=== PATIENT | female | born 1970 | race Two or more races ===

== ENCOUNTER 2025-01-04 09:40 | Outpatient (AMB) | payer OTHER, SELFPAY ==
--- NOTE | 2025-01-04 09:47 | A.OFFVIS_ITS ---
VS Expanded 01/04/25 09:49 BP 141/67 H Blood Pressure Location Lt brachial Blood Pressure Position Sitting Pulse 55 Pulse Oximetry 98 Height 5 ft 3 in Weight 179 lb 3.2 oz BMI 31.7 Body Fat % 39.4 Body Fat Mass 70.6 Fat Free Mass 108.4 Visceral Fat Rating 10.0 Body Water % 43.0 Body Water Mass 77.0 Muscle Mass/Score 103.0 Basal Metabolic Rate/Score 1,489 Intake Visit Reasons: OV PO LSG (GLP-1 medication) Mirror Polisher Required: No Allergies No Known Allergies [No Known Allergies*] Allergy (Unverified 01/04/25 09:48) Medication List - Last Reconciled 01/04/25 by AMANDA Burgess ascorbate calcium (vitamin C) 1 g PO Q6H ergocalciferol (vitamin D2) (Vitamin D2) 1,250 mcg PO QWEEK famotidine 20 mg PO BEDTIME magnesium citrate 500 mg PO ONCE omeprazole 20 mg PO DAILY vitamin E (dl, acetate) 45 mg PO DAILY HPI Comments Details: Patient is a 54-year-old female who returns to the office for follow-up. She is status post sleeve gastrectomy performed on 07/21/2018. She states that her weight initially was 215 lb. Her operative weight was a proximally 190 lb. Her last visit was in a proximally 2019. She reports her lowest weight of 139 lb and the most she weighed since surgery was 180 lb. Weight today is 179.2 lb with a BMI of 31.7. Meal plan: nothing formal Drinking 32 oz water daily, coffee in the morning, no soda or juice, no etoh, no tobacco Exercise plan: walking outside and treadmill at home outside, 3 days per week, 30 min Treadmill, 2-3, 1 hour, 300 calories Any post op complications: none IRVIN: ongoing DM: Never HTN: Never Hyperlipidemia: Never GERD:?0-5 scale ??0 = no symptoms ??1 = symptoms noticeable but not bothersome 2 =symptoms bothersome but not daily ? 3 = symptoms bothersome and daily 4 = symptoms affect daily activities 5 = symptoms are incapacitating, unable to do daily activities ? How bad is the heartburn: 3 ? Heartburn while lying down: 3 ? Heartburn when standing up: 2 ? Heartburn after meals: 3 ? Does heartburn change your diet: 2 ? Does heartburn wake you up from sleep: 0 ? Do you have difficulty swallowin ? Do you have pain with swallowin ? If you take medicine for your reflux, does this affect your daily life: 0 Satisfaction with present condition - satisfied or not satisfied: not satisfied PFSH Surgical History Hx of laparoscopic partial gastrectomy Family History Sister Brain cancer Paternal Aunt Breast cancer Physical Exam Vital Signs: Last Vital Signs Pulse 55 01/04/25 09:49 BP 141/67 H 01/04/25 09:49 Pulse Ox 98 01/04/25 09:49 BMI result Body Mass Index 31.7 Const General: cooperative and no acute distress Orientation/consciousness: patient oriented x3 Resp Effort & Inspection: normal respiratory effort Auscultation: clear to auscultation bilaterally Cardio Rate: regular rate Rhythm: regular rhythm GI Inspection: Yes normal to inspection and Yes incision (well healed) Palpation (GI): Soft to palpation and no masses Neuro General: patient oriented x3 Assessment & Plan Assessment & Plan (1) S/P laparoscopic sleeve gastrectomy: Code(s): Z98.84 - Bariatric surgery status Category: Surgical Plan: Patient has not been seen in the office in at least 5 years. Check postop labs. Start meal plan: 6-8 am celebrate rebuild with 2 scoops in 10 oz of unsweetened coconut milk 11-1 pm another shake 6 pm meal with 7 forks of protein And 7 forks of vegetables8 pm apple or half cup fresh berries Drink 64 oz of water or crystal light or propel daily She will use her treadmill at home, tracking calories with a goal of burning 300 calories per day. She wants to additionally do Pilates. We will have her return to the office in approximately 4 weeks. I gave her my cell phone number to communicate weekly with her weight is and with any questions or concerns. Orders: Orders Lipid Panel Today Z98.84 - Bariatric surgery status IRON PROFILE Today Z98.84 - Bariatric surgery status Comprehensive Met. Panel Today Z98.84 - Bariatric surgery status Vitamin B12 and Folate Today Z98.84 - Bariatric surgery status Zinc Today Z98.84 - Bariatric surgery status Vitamin A Today Z98.84 - Bariatric surgery status TSH reflex Free T4 Today Z98.84 - Bariatric surgery status Ferritin Today Z98.84 - Bariatric surgery status Insulin Today Z98.84 - Bariatric surgery status Hemoglobin A1c Today Z98.84 - Bariatric surgery status Complete Blood Count Auto Diff Today Z98.84 - Bariatric surgery status C Reactive Protein Today Z98.84 - Bariatric surgery status Vitamin B1 Today Z98.84 - Bariatric surgery status Vitamin D 25-OH Total Today Z98.84 - Bariatric surgery status
[2025-01-04 09:49] VITALS: BP 141/67; PULSE 55; O2SAT 98; BMI 31.7
--- OUTSIDE RECORDS SUMMARY | 2025-01-04 10:53 | XMS_ITS | Clinical Summary ---
Author Organization [facility] [address] [place] [address] [place] [address] Phone Care Team Providers Care Director Sales Name Role Phone Guanakito Goode Primary Care Provider [phone] Allergies No known active allergies Medications albuterol 2.5 mg /3 mL (0.083 %) nebulizer solution Inhale 3 mL (2.5 mg total) by mouth. 4 Active albuterol HFA (Ventolin HFA) 90 mcg/actuation inhaler Inhale 2 puffs by mouth. 4 Active famotidine (PEPCID) 20 mg tablet Take 1 tablet (20 mg total) by mouth 2 (two) times a day. 4 Active fluticasone propionate (FLONASE) 50 mcg/actuation nasal spray Administer 2 sprays into each nostril 1 (one) time each day. 4 Active loratadine (CLARITIN) 10 mg tablet Take 1 tablet (10 mg total) by mouth. 3 Active melatonin 3 mg tablet Take 1-2 tablets (3-6 mg total) by mouth. 4 Active montelukast (SINGULAIR) 10 mg tablet Take 1 tablet (10 mg total) by mouth. 4 Active omeprazole (PriLOSEC) [address] capsule Take 2 capsules (40 mg total) by mouth 1 (one) time each day. 3 Active SUMAtriptan (IMITREX) 100 mg tablet TAKE 1 TABLET BY MOUTH NEEDED FOR MIGRAINE HEADACHES, MAY REPEAT DOSE ONCE AFTER 2 HOURS 4 Active magnesium oxide (MAG-OX) 400 mg magnesium tablet Take 2 tablets (800 mg total) by mouth 1 (one) time each day. 4 Active multivitamin with minerals (Multiple Vitamin-Minerals) tablet Take by mouth. Activ e azelastine (ASTELIN) 137 mcg (0.1 %) nasal spray 2 Sprays by Each Nare route 2 times daily. Use in each nostril as directed Active beclomethasone dipropionate (QVAR REDIHALER) 80 mcg/actuation HFA aerosol breath activated inhaler Inhale 1 Puff into the lungs 2 Times Daily Active topiramate (TOPAMAX) 25 mg tablet Take 1 tablet (25 mg total) by mouth 1 (one) time each day in the evening. For 180 days Active UNABLE TO FIND Med Name: CPAP Historical (HISTORICAL CPAP) Inhale into the lungs. Life supply-pressur e 4-8 - Inhalation Active Active Problems Problem Noted Date Diagnosed Date Mild persistent asthma without complication 05/2024 Lateral epicondylitis of right elbow 04/09/2024 Vitamin D deficiency 06/23/2023 Allergic rhinitis due to pollen 01/16/2018 Obstructive sleep apnea 11/13/2016 Overview (08/16/2024): [facility] Polysomnogram: Date 11/05/2016; Wt 210# SE 88%; SM 83%; REM 23%; RDI 31 (AHI 25), worse in REM (RDI 76 - AHI 74), Central apneas 1; Obstructive apneas 14; Mixed apneas 0; hypopneas 170; RERAs 46; average oxygen saturation 95% (lowest 69% - with saturations <88% for 5% or more of study); PLMs 31. [facility] Polysomnogram treatment study. Date 02/24/2017 . SE 92 % SM 92 %; spent 35 % of the study in REM. At the optimal pressure of 5; RDI 1 (AHI 0.8), Central apneas 0; Obstructive apneas 4; Mixed apneas 0; hypopneas 2; RERAs 1; and, average oxygen saturation was 92%. For the entire study, PLMs ~35. Last Assessment & Plan: Life Supplies. CPAP 4-8cm PLMD (periodic limb movement disorder) 7 GERD (gastroesophageal reflux disease) 6 Migraine 10/01/2013 Overweight (BMI 25.0-29.9) 04/29/2013 Overview (08/16/2024): S/p sleeve gastrectomy Knee pain 04/22/2012 Heartburn 04/22/2012 Calculus of kidney 01/08/2012 Overview (08/16/2024): I got a CT report from [facility] documenting 6mm stone and left sided hydronephrosis. Asthma 08/22/2011 Overview (08/16/2024): Mild and she only uses the albuterol about once per month Immunizations Name Administration Dates Next Due Influenza Quadravalent, MDCK , 0.5ml, preservative free (Flucelvax) 6mo and older 12/23/2022 Influenza Quadravalent, MDCK , 0.5ml, with preservative (Flucelvax) 6mo and older 08/03/2017 Influenza trivalent, 0.5mL, preservative free (Fluarix; FluLaval; Fluzone) ages 6mo and older (Afluria) 3 years and older 07/21/2023 Influenza trivalent, with pr eservative (Fluzone; Afluria) 6mo and older 09/29/2016,10/01/2013 Moderna (age 6mo & older) Bi valent, COVID-19, 0.5 mL or 0.25 mL dosage 01/03/2023 [email or web address] SARS-CoV-2 COVID-19, mRNA, LNP-S, preservative free 12/16/2021,04/12/2021,03/22/2021 Pneumococcal polysaccharide 23 valent (Pneumovax 23) 2yo and older 03/01/2019 Td Tetanus diptheria (Tdvax) 7yo and older 12/23 Tdap Tetanus diptheria acell ular pertussis (Boostrix; Adacel) 7yo and older 04/22/2012 Zoster recombinant (Shingrix ) 19yo and older 03/03/2023,01/03/2023 Surgical History Surgery Date Site/Laterality Comments ESOPHAGOGASTRODUODENOSCOPY 04/10/2012 PROCEDURE: IL ESOPHAGOGASTRODUODENOSCOPY TRANSORAL DIAGNOSTIC; COMMENT: normal MULTIPLE TOOTH EXTRACTIONS PROCEDURE: HISTORICAL DENTAL EXTRACTION OTHER SURGICAL HISTORY 07/21/2018 PROCEDURE: IL LAPS GSTR RSTCV PX W/BYP RASHI-EN-Y LIMB <150 CM; COMMENT: SLEEVE COLONOSCOPY 2020 PROCEDURE: HISTORICAL COLONOSCOPY; COMMENT: rpt 10 years Medical History Medical History Date Comments Asthma 08/22/2011 DX:Asthma Obesity (BMI 30-39.9) 04/29/2013 DX:Obesity (BMI 30-39.9) Family History Medical History Relation Name Comments Other: GSW, wheelchair bound Brother Diabetes Father HTN, HLD Hypertension Maternal Grandfather CVA Diabetes Maternal Grandmother retinop athy, ESRD Hyperlipidemia Mother DM Breast cancer Other p aunt Heart attack Paternal Grandfather Heart attack Paternal Grandmother Other: glioma Sister 1 No Known Problems Sister 2 Colon cancer Neg Hx Ovarian cancer Neg Hx Relation Name Status Comments Brother Alive Father Maternal Grandfather Maternal Grandmother Mother Alive Other p aunt Paternal Grandfather Paternal Grandmother Sister 1 Sister 2 Alive Social History Tobacco Use Types Packs/Day Years Used Date Smoking Tobacco: Never Smokeless Tobacco: Never Alcohol Use Standard Drinks/Week Comments Yes 0 (1 standard drink = 0.6 oz pur e alcohol) Comments Unknown Sex and Gender Information Value Date Recorded Sex Assigned at Not on file Legal Sex Female 11:37 PM EST Gender Identity Not on file Sexual Orientation Not on file Obstetrics History Last Filed Vital Signs Vital Sign Reading Time Taken Comments Blood Pressure 124/80 07/16/2024 10:46 AM EDT Pulse 49 07/16/2024 10:46 AM EDT Temperature - - Respiratory Rate - - Oxygen Saturation - - Inhaled Oxygen Concentration - - Weight 83.1 kg (183 lb 3.2 oz) 07/16/2024 10:46 AM EDT Height 160 cm (5' 3 ) 07/16/2024 10:46 AM EDT Body Mass Index 32.45 07/16/2024 10:46 AM EDT Plan of Treatment Upcoming Encounters Date Type Department Care Team (Late st Contact Info) Description 01/13/2025 11:30 AM EST Office Visit Pulmonolgy - [place] [address] [place] [id number] Amber Austin, SURAJ [address] [place] [address] 04/02/2025 11:30 AM EDT Appointment Radiology Department - [address] [phone] Health Maintenance Due Date Last Done Comments Hepatitis B Vaccines (2 of 3 - 19+ 3-dose series) 09/06/2023 08/09/2023 Influenza Vaccine (#1) 2024 , 12/23/2022, 08/03/2017, Additional history exists COVID-19 Vaccine ( season) 2024 07/24/2024, 01/03/2023, 12/16/2021, Additional history exists Depression Screening 09/23/2024 12/29/2023, 09/23/20 Social Influencers of Health Screening 12/22/2024 12/22/2023 Breast Cancer Screening 03/13/2026 03/13/20, 03/13/2024, 02/15/2023, Additional history exists Cervical Cancer Screening: HPV 03/07/2028 03/07/2023 Cholesterol Screening (Lipid Panel) 12/29/2028 12/29/2023, 12/29/2023 Colorectal Cancer Screening: Colonoscopy 02/19/2031 02/19/2021, 02/19/2021 DTaP,Tdap,and Td Vaccines (3 - Td or Tdap) 12/23/2032 12/23/2022, 04/22/2012 HIV Screening Completed 11/24/2018 Hepatitis C Screening Completed 01/02/2023 Zoster Vaccines Completed 03/03/2023, 01/03/2023 Pneumococcal Vaccine: 50+ Years Completed 07/24/2024, 03/01/2019 Pneumococcal Vaccine: Pediatrics (0 to 5 Years) and At-Risk Patients (6 to 64 Years) Completed 07/24/2024, 03/01/2019 HIB Vaccines Aged Out No longer eligi ble based on patient's age to complete this topic HPV Vaccines Aged Out No longer eligi ble based on patient's age to complete this topic Hepatitis A Vaccines Aged Out No long er eligible based on patient's age to complete this topic IPV Vaccines Aged Out No longer eligi ble based on patient's age to complete this topic MMR Vaccines Aged Out No longer eligi ble based on patient's age to complete this topic Meningococcal ACWY Vaccine Aged Out N o longer eligible based on patient's age to complete this topic Meningococcal B Vacine Aged Out No lo nger eligible based on patient's age to complete this topic RSV Immunization Patients Under 20 months Aged Out No longer eligible based on patient's age to complete this topic Varicella Vaccines Aged Out No longer eligible based on patient's age to complete this topic Procedures Procedure Name Priority Date/Time Associated Diagnosis Comments SCREENING MAMMOGRAPHY BI 2-VIEW BREAST INC CAD Routine 03/13/2024 11:24 AM EDT Encounter for screening mammogram for malignant neoplasm of breast LIPID PANEL Routine 12/29/2023 DEPRESSION SCREENING Routine 09/23/2023 HPV Routine 03/07/2023 HEPATITIS C SCREENING Routine 01/02/2023 COLONOSCOPY Routine 02/19/2021 HIV SCREENING Routine 11/24/2018 from Last 3 Months or Most Recently Relevant to Health Maintenance Results * SCREENING MAMMOGRAPHY BI 2-VIEW BREAST INC CAD (03/13/2024 11:24 AM EDT) Anatomical Region Laterality Modality Radiographic Jenny ging 02/15/2023 11:3 7 AM EDT Narrative 03/15/2024 11:55 AM EDT This is a summary report. The complete report is available in the patient's medical record. If you cannot access the medical record, please contact the sending organization for a detailed fax or copy. Full field digital screening 2D C views and tomosynthesis mammography, reviewed with CAD and compared to previous. The breasts are composed of fatty and fibroglandular tissue. ??No suspicious mass, architectural distortion or suspicious calcifications are identified. IMPRESSION: : No mammographic evidence of malignancy. BIRADS 1-Negative; N. 5 year breast cancer risk assessment 0.9 % Lifetime breast cancer risk assessment 6.5 % Breast cancer risk category Low (<15%) Procedure Note Nataliya Abarca MD - 06/28/2024 This is a summary report. The complete report is available in thepatient's medical record. If you cannot access the medical record, pleasecontact the sending organization for a detailed fax or copy. Full field digital screening 2D C views and tomosynthesis mammography,reviewed with CAD and compared to previous. The breasts are composed offatty and fibroglandular tissue. No suspicious mass, architecturaldistortion or suspicious calcifications are identified. IMPRESSION: : No mammographic evidence of malignancy. BIRADS 1-Negative; N. 5 year breast cancer risk assessment 0.9 % Lifetime breast cancer risk assessment 6.5 % Breast cancer risk category Low (<15%) Result [facility] Guanakito PATEL IMG XR PROCEDURES Final R esult * (ABNORMAL) Lipid panel (12/29/2023) [facility] LDL/HDL Ratio 3 0 - 4 Triglycerides 105 0 - 150 mg/dL Cholesterol 200 0 - 200 mg/dL HDL 72 >=40 mg/dL LDL Cholesterol 107(A) 0 - 100 mg/dL Blood Venous blood specimen / Unknown Result [facility] BLOOD ORDERABLES Paloma l Result * Depression Screening (09/23/2023) [facility] Depression Screening abstracted Result [facility] HEALTH MAINTENANCE Final Result * Cervical Cancer Screening: HPV (03/07/2023) [facility] Cervical Cancer Screening: HPV abstracted; negative Result [facility] HEALTH MAINTENANCE Final Result * Hepatitis C Screening (01/02/2023) [facility] Hepatitis C Screening abstracted Historical Provider HEALTH MAINTENANCE Final Result * Colonoscopy (02/19/2021) Colonoscopy abstracted Anatomical Region Laterality Modality Other Historical Provider HEALTH MAINTENANCE Final Result * HIV Screening (11/24/2018) HIV Screening abstracted Historical Provider HEALTH MAINTENANCE Final Result from Last 3 Months or Most Recently Relevant to Health Maintenance Insurance PLAN Care Teams Director Sales Relationship Specialty Start Date End Date Guanakito Goode PA [address] [place] [id number] PCP - General Internal Medicine 12/29/24
--- OUTSIDE RECORDS SUMMARY | 2025-01-04 10:54 | XMS_ITS | Clinical Summary ---
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 [employer]posites Name Role Phone Unavailable Primary Care Provider Unavailabl e Source Comments PLEASE NOTE, if this patient is a minor, it may be UNLAWFUL to discuss sensitive information that is contained in these records (such as FAMILY PLANNING, MENTAL HEALTH or SUBSTANCE ABUSE) with the minor patient's parent or other person without the patient's specific authorization.[facility] Immunizations Name Administration Dates Next Due PFIZER COVID VACCINE, PURPLE CAP, 12+ 04/12/2021 ,03/22/2021 Social History Tobacco Use Types Packs/Day Years Used Date Smoking Tobacco: Never Smokeless Tobacco: Never Alcohol Use Standard Drinks/Week Comments Never 0 (1 standard drink = 0.6 oz pur e alcohol) Social Connections Answer Date Recorded Social Connections and Isolation 0 05/10/2024 Financial Resource Strain Answer Date R ecorded Financial Resource Strain 0 2023 Stress Answer Date Recorded Stress 0 05/10/2024 Physical Activity Answer Date Recorded Physical Activity 0 05/10/2024 Food Insecurity Answer Date Recorded Food 0 05/10/2024 Transportation Needs Answer Date Record ed Transportation 0 05/10/2024 Housing Stability Answer Date Recorded Housing 0 05/10/2024 Safety and Environment Answer Date Lonnie rded Safety 0 05/10/2024 Utilities Answer Date Recorded Utilities 0 05/10/2024 Employment Answer Date Recorded Employment 0 05/10/2024 Comments Unknown Sex and Gender Information Value Date Recorded Sex Assigned at Female 07/28/2020 8:11 AM PDT Legal Sex Female 11:36 AM PDT Gender Identity Female 07/28/2020 8:11 AM PDT Sexual Orientation Straight 07/28/2020 8: 11 AM PDT Last Filed Vital Signs Vital Sign Reading Time Taken Comments Blood Pressure 146/69 07/28/2020 11:09 AM EDT Pulse 55 07/28/2020 11:09 AM EDT Temperature 36.7 ??C (98.1 ??F) 07/28/2020 11:09 AM E DT Respiratory Rate - - Oxygen Saturation - - Inhaled Oxygen Concentration - - Weight 73 kg (161 lb) 07/28/2020 11:09 AM EDT Height - - Body Mass Index - - Plan of Treatment Health Maintenance Due Date Last Done Comments Diabetes Screening 1969 HPV Screening 1969 Hepatitis C Screening 1969 Lipid Screening 1969 Pap + HPV 1969 Tobacco Screening 1969 HIV Screening 1984 Imm-Hepatitis B (1 of 3 - 19 + 3-dose series) 1988 Cervical Cancer Screening [address] Colonography 2014 Colonoscopy 2014 Colorectal Cancer Screening 2014 FIT/gFOBT 2014 Fecal DNA 2014 Flexible Sigmoidoscopy 2014 Imm-Zoster, Recombinant (1 of 2) 2019 Hypertension Screening (#1) 07/28/2021 Imm-DTaP/Tdap/Td (2 - Td or Tdap) 04/22/2022 012 Breast Cancer Screening (Mammogram) 01/06/202301/06 [id number] ( season) 2024 021, 03/22/2021 Imm-Influenza (#1) 2024 09/29/2016, 10/01/2013 Alcohol and Drug Screen 11/10/2024 Depression Annual Screen 11/10/2024 Cervical Ablation/Cold-Knife Conization Discontinued Cervical Cryotherapy Discontinued Colposcopy Discontinued Endometrial Biopsy Discontinued Excision/Leep Discontinued HPV Genotyping Discontinued Vaginal Pap Discontinued Vulvoscopy Discontinued Insurance [employer]
== END 2025-01-04 10:30 | disposition home or self-care (01) ==
PROVIDERS: PCP Internal Medicine Endocrinology, Diabetes & Metabolism; Visit Provider Physician Assistant Surgical
DX: E66.811 Obesity, class 1 (principal); Z68.31 Body mass index [BMI] 31.0-31.9, adult; Z90.3 Acquired absence of stomach [part of]; Z98.84 Bariatric surgery status
CPT/HCPCS: 99214; G2211

== ENCOUNTER → 2025-01-04 09:40 | Outpatient (BNVA) | payer OTHER, SELFPAY | PROVIDERS: PCP Internal Medicine Endocrinology, Diabetes & Metabolism; Visit Provider Physician Assistant Surgical | DX: Z98.84 Bariatric surgery status (principal) | CPT/HCPCS: 99212 ==

== ENCOUNTER 2025-01-14 09:13 | Outpatient (REF) | payer OTHER, SELFPAY ==
[2025-01-14 09:43] LABS: MANUAL DIFF FLAG NO
--- OUTSIDE RECORDS SUMMARY | 2025-01-14 09:55 | XMS_ITS | Clinical Summary ---
Author Organization [facility] Address [address] [place] [address] Care Team Providers Care Automatic Door Mechanic Name Role Phone Unavailable Primary Care Provider [...] 04/22/2022 012 Breast Cancer Screening (Mammogram) 01/06/202301/06 [id number] ( season) 2024 021, 03/22/2021 Imm-Influenza (#1) 2024 09/29/2016, 10/01/2013 Alcohol and Drug Screen 11/10/2024 Depression Annual Screen 11/10/2024 Cervical Ablation/Cold-Knife Conization Discontinued Cervical Cryotherapy Discontinued Colposcopy Discontinued Endometrial Biopsy Discontinued Excision/Leep Discontinued HPV Genotyping Discontinued Vaginal Pap Discontinued Vulvoscopy Discontinued Insurance [employer]
--- OUTSIDE RECORDS SUMMARY | 2025-01-14 09:55 | XMS_ITS | Clinical Summary ---
Author Organization [facility] [address] [place] [address] [place] [address] Phone Care Team Providers Care Candy Spreader Helper Name Role Phone Guanakito Goode Primary Care Provider [phone] [phone] Allergies No known active allergies Medications loratadine (CLARITIN) 10 mg tablet Take 1 tablet (10 mg total) by mouth. 023 Active melatonin 3 mg tablet Take 1-2 tablets (3-6 mg total) by mouth. 024 Active omeprazole (PriLOSEC) [address] capsule Take 2 capsules (40 mg total) by mouth 1 (one) time each day. 023 Active SUMAtriptan (IMITREX) 100 mg tablet TAKE 1 TABLET BY MOUTH NEEDED FOR MIGRAINE HEADACHES, MAY REPEAT DOSE ONCE AFTER 2 HOURS 024 Active magnesium oxide (MAG-OX) 400 mg magnesium tablet Take 2 tablets (800 mg total) by mouth 1 (one) time each day. 024 Active multivitamin with minerals (Multiple Vitamin-Mineral s) tablet Take by mouth. Activ e UNABLE TO FIND Med Name: CPAP Historical (HISTORICAL CPAP) Inhale into the lungs. Life supply-pressure 4-8 - Inhalation Active famotidine (PEPCID) 20 mg tabletIndicatio ns:Allergic rhinitis due to pollen,Gastro-e sophageal reflux disease without esophagitis TAKE 1 TABLET BY MOUTH TWICE A DAY 180 tablet 3 025 Active montelukast (SINGULAIR) 10 mg tabletIndicatio ns:Mild persistent asthma without complication Take 1 tablet (10 mg total) by mouth at bedtime. 90 each 3 025 2025 Active azelastine (ASTELIN) 137 mcg (0.1 %) nasal sprayIndication s:Allergic rhinitis due to pollen, unspecified seasonality Administer 2 sprays into each nostril 2 (two) times a day. 2 Sprays by Each Nare route 2 times daily. Use in each nostril as directed 90 mL 3 025 2025 Active albuterol HFA (Ventolin HFA) 90 mcg/actuation inhalerIndicati ons:Mild persistent asthma without complication Inhale 2 puffs by mouth every 4 (four) hours if needed for wheezing. 54 g 1 Active albuterol 2.5 mg /3 mL (0.083 %) nebulizer solutionIndicat ions:Mild persistent asthma without complication Take 3 mL (2.5 mg total) by nebulization every 4 (four) hours if needed for wheezing. 75 mL 3 Active vitamin E 670 mg (1,000 unit) capsule Take 1 capsule (1,000 Units total) by mouth 1 (one) time each day. Active omega 8-ozo-dph-fish oil 1,000 mg (250 mg-750 mg)/5 mL liquid Take 1,000 mg by mouth. Active mecobalamin, vitamin B12, (B12 Active) 1,000 mcg tablet,chewable Chew 1,000 mcg 1 (one) time each day. Active ashwagandha extract 500 mg capsule Take 500 mg by mouth 1 (one) time each day. Active ascorbic acid (Vitamin C) 1,000 mg tablet Take 1 tablet (1,000 mg total) by mouth 1 (one) time each day. Active vitamin D3-vitamin K2 (K2-D3 Max) 125 mcg (5,000 unit)-180 mcg capsule Take 5,000 Units by mouth 1 (one) time each day. Active fluticasone HFA (FLOVENT HFA) 110 mcg/actuation inhalerIndicati ons:Mild persistent asthma without complication Inhale 1 puff by mouth 2 (two) times a day. 36 each 2 Active fluticasone propionate (FLONASE) 50 mcg/actuation nasal sprayIndication s:Allergic rhinitis due to pollen, unspecified seasonality Administer 2 sprays into each nostril 1 (one) time each day. 48 g 3 025 2025 Active albuterol 2.5 mg /3 mL (0.083 %) nebulizer solution Inhale 3 mL (2.5 mg total) by mouth. 2024 Discontinued(R eorder) albuterol HFA (Ventolin HFA) 90 mcg/actuation inhaler Inhale 2 puffs by mouth. 2024 Discontinued(R eorder) famotidine (PEPCID) 20 mg tablet Take 1 tablet (20 mg total) by mouth 2 (two) times a day. 024 2024 Discontinued fluticasone propionate (FLONASE) 50 mcg/actuation nasal spray Administer 2 sprays into each nostril 1 (one) time each day. 024 2024 Discontinued(D uplicate order) montelukast (SINGULAIR) 10 mg tablet Take 1 tablet (10 mg total) by mouth. 2024 Discontinued(R eorder) azelastine (ASTELIN) 137 mcg (0.1 %) nasal spray 2 Sprays by Each Nare route 2 times daily. Use in each nostril as directed 2024 Discontinued(R eorder) beclomethasone dipropionate (QVAR REDIHALER) 80 mcg/actuation HFA aerosol breath activated inhaler Inhale 1 Puff into the lungs 2 Times Daily 2024 Discontinued(D uplicate order) topiramate (TOPAMAX) 25 mg tablet Take 1 tablet (25 mg total) by mouth 1 (one) time each day in the evening. For 180 days 2024 Discontinued(N on-compliance) fluticasone HFA (FLOVENT HFA) 110 mcg/actuation inhaler Inhale 1 puff by mouth 2 (two) times a day. 024 2024 Discontinued(R eorder) fluticasone propionate (FLONASE) 50 mcg/actuation nasal spray Administer 2 sprays into each nostril 1 (one) time each day. 024 2024 Discontinued(R eorder) Active Problems Problem Noted Date Diagnosed Date Mild persistent asthma without complication 05/2024 Lateral epicondylitis of right elbow 04/09/2024 Vitamin D deficiency 06/23/2023 Allergic rhinitis due to pollen 01/16/2018 Obstructive sleep apnea 11/13/2016 Overview (08/16/2024): [facility] [place]: Date 11/05/2016; Wt 210# SE 88%; SM 83%; REM 23%; RDI 31 (AHI 25), worse in REM (RDI 76 - AHI 74), Central apneas 1; Obstructive apneas 14; Mixed apneas 0; hypopneas 170; RERAs 46; average oxygen saturation 95% (lowest 69% - with saturations <88% for 5% or more of study); PLMs 31. [facility] Polysomnogram treatment study. Date 02/24/2017 . SE [...] (08/16/2024): I [place] [facility] [place] 6[place] and left sided hydronephrosis. Asthma 08/22/2011 Overview (08/16/2024): Mild and she only uses the albuterol about once per month Encounters Date Type Department Care Team Description 01/13/2025 11:30 AM EST [facility] [address] [place] [address] Amber Austin NP Mild persistent asthma without complication (Primary Dx); Allergic rhinitis due to pollen, unspecified seasonality from Last 3 Months Immunizations Name Administration Dates Next Due Influenza [...] 0.5 mL or 0.25 mL dosage 01/03/2023 Pfizer SARS-CoV-2 COVID-19, mRNA, LNP-S, preservative free 12/16/2021,04/12/2021,03/22/2021 Pneumococcal polysaccharide 23 valent (Pneumovax 23) 2yo and older 03/01/2019 Td Tetanus diptheria (Tdvax) 7yo and older 12/23 Tdap Tetanus diptheria acell ular pertussis (Boostrix; Adacel) 7yo and older 04/22/2012 Zoster recombinant (Shingrix ) 19yo and older 03/03/2023,01/03/2023 Surgical History Surgery Date Site/Laterality Comments ESOPHAGOGASTRODUODENOSCOPY 04/10/2012 PROCEDURE: [place] ESOPHAGOGASTRODUODENOSCOPY TRANSORAL DIAGNOSTIC; COMMENT: normal MULTIPLE TOOTH EXTRACTIONS PROCEDURE: HISTORICAL DENTAL EXTRACTION OTHER SURGICAL HISTORY 07/21/2018 PROCEDURE: [place] LAPS GSTR RSTCV PX W/BYP RASHI-EN-Y LIMB [...] Sign Reading Time Taken Comments Blood Pressure 120/64 01/13/2025 11:19 AM EST Pulse 64 01/13/2025 11:19 AM EST Temperature 35.7 ??C (96.3 ??F) 01/13/2025 11:[address] Respiratory Rate 14 01/13/2025 11:19 AM EST Oxygen Saturation 96% 01/13/2025 11:19 AM EST Inhaled Oxygen Concentration - - Weight 83.6 kg (184 lb 3.2 oz) 01/13/2025 11:19 AM EST Height 160 cm (5' 3 ) 01/13/2025 11:19 AM EST Body Mass Index 32.63 01/13/2025 11:19 AM EST Plan of Treatment Upcoming Encounters Date Type Department Care Team (Late st Contact Info) Description 04/02/2025 11:30 AM EDT Appointment Radiology Department [address] [address] 04/18/2025 10:10 AM EDT Office Visit Pulmonolgy - [address] [place] [id number] Amber Austin, SURAJ [address] [facility] [address] [place] [address] Health Maintenance Due Date Last Done Comments Hepatitis B Vaccines (2 of 2 - CpG 2-dose series) 09/06/2023 08/09/2023 Influenza Vaccine (#1) 2024 3, 07/21/2023, 12/23/2022, Additional history exists COVID-19 Vaccine ( season) 2024 07/24/2024, 01/03/2023, 12/16/2021, Additional history exists Depression Screening 09/23/2024 12/29/2023, 09/23/20 Social Influencers of Health Screening 12/22/2024 12/22/2023 Breast Cancer Screening 03/13/2026 03/13/20 24, 03/13/2024, 02/15/2023, Additional history exists Cervical Cancer Screening: HPV 03/07/2028 03/07/2023 Cholesterol Screening (Lipid Panel) 12/29/2028 12/29/2023, 12/29/2023 Colorectal Cancer Screening: Colonoscopy 02/19/2031 02/19/2021, 02/19/2021 DTaP,Tdap,and Td Vaccines (3 - Td or Tdap) 12/23/2032 12/23/2022, 04/22/2012 HIV Screening Completed 11/24/2018 Hepatitis C Screening Completed 01/02/2023 Zoster Vaccines Completed 03/15/2023, 02/09, 01/03/2023 Pneumococcal Vaccine: 50+ Years Completed 07/24/2024, [...] Breast cancer risk category Low (<15%) Result [facility] Guanakito PATEL IMG XR PROCEDURES Final R esult * (ABNORMAL) Lipid panel (12/29/2023) [facility] LDL/HDL Ratio 3 0 - 4 Triglycerides 105 0 - 150 mg/dL Cholesterol 200 0 - 200 mg/dL HDL 72 >=40 mg/dL LDL Cholesterol 107(A) 0 - 100 mg/dL Blood Venous blood specimen / Unknown Result [facility] LAB BLOOD ORDERABLES [place] l Result * Depression Screening (09/23/2023) [facility] Depression Screening abstracted Result [facility] Provider HEALTH MAINTENANCE Final Result * Cervical Cancer Screening: HPV (03/07/2023) [facility] Cervical Cancer Screening: HPV abstracted; negative Result [facility] Provider HEALTH MAINTENANCE Final Result * Hepatitis C Screening (01/02/2023) [facility] Hepatitis C Screening abstracted Result [facility] Provider HEALTH MAINTENANCE Final Result * Colonoscopy (02/19/2021) [facility] Colonoscopy abstracted Anatomical Region Laterality Modality Other us Historical Provider HEALTH MAINTENANCE Final Result * HIV Screening (11/24/2018) HIV Screening abstracted us Historical Provider HEALTH MAINTENANCE Final Result from Last 3 Months or Most Recently Relevant to Health Maintenance Insurance [facility] [employer] Care Teams Candy Spreader Helper Relationship Specialty Start Date End Date Guanakito Goode PA [address] [place] [address] PCP - General Internal Medicine 12/29/24
--- OUTSIDE RECORDS SUMMARY | 2025-01-14 09:56 | XMS_ITS | Encounter Summary ---
[facility] Organization [facility] Address [address] [place] [address] Care Team Providers Care Cigarette Lighter Repairer Name Role Phone Guanakito Goode Primary Care Provider [phone] [phone] Reason for Referral * Medications - Pending Review Specialty Diagnoses / Procedures Referred By Drea hoff Referred To Contact Diagnoses Mild persistent asthma without complication Amber Austin NP [address] [facility] [place] [address] [place] [address] Phone: tel: fax: Referral ID Status Reason Start Date Expiration Date V isits Requested Visits Authorized [id number] Pending Review 1 1 * Medications - Closed Specialty Diagnoses / Procedures Referred By Drea hoff Referred To Contact Diagnoses Mild persistent asthma without complication Amber Austin NP [address] [facility] [place] [address] [place] [address] Phone: tel: fax: Referral ID Status Reason Start Date Expiration Date Visits Re quested Visits Authorized [id number] Closed 1 1 Reason for Visit * Reason Comments Sleep Apnea Encounter Details Date Type Department Care Team ([facility] st Contact Info) Description 01/13/2025 11:30 AM EST [facility] [address] [facility] [address] [place] [address] Amber Austin NP [address] [place] [address] Mild persistent asthma without complication (Primary Dx); Allergic rhinitis due to pollen, unspecified seasonality Social History Tobacco Use Types Packs/Day Years Used Date Smoking Tobacco: Never Smokeless Tobacco: Never Alcohol Use Standard Drinks/Week Comments Yes 0 (1 standard drink = 0.6 oz pur e alcohol) Comments Unknown Sex and Gender Information Value Date Recorded Sex Assigned at Not on file Legal Sex Female 11:37 PM EST Gender Identity Not on file Sexual Orientation Not on file documented as of this encounter Last Filed Vital Signs Vital Sign Reading [...] Mass Index 32.63 01/13/2025 11:19 AM EST documented in this encounter Ordered Prescriptions Prescription Sig Dispense Quantity Refills Last Filled Start Date End Date fluticasone propionate (FLONASE) 50 mcg/actuation nasal sprayIndications: Allergic rhinitis due to pollen, unspecified seasonality Administer 2 sprays into each nostril 1 (one) time each day. 48 g 3 01/13/2025 fluticasone HFA (FLOVENT HFA) 110 mcg/actuation inhalerIndication s:Mild persistent asthma without complication Inhale 1 puff by mouth 2 (two) times a day. 36 each 2 01/13/2025 albuterol 2.5 mg /3 mL (0.083 %) nebulizer solutionIndicatio ns:Mild persistent asthma without complication Take 3 mL (2.5 mg total) by nebulization every 4 (four) hours if needed for wheezing. 75 mL 3 01/13/2025 albuterol HFA (Ventolin HFA) 90 mcg/actuation inhalerIndication s:Mild persistent asthma without complication Inhale 2 puffs by mouth every 4 (four) hours if needed for wheezing. 54 g 1 01/13/2025 azelastine (ASTELIN) 137 mcg (0.1 %) nasal sprayIndications: Allergic rhinitis due to pollen, unspecified seasonality Administer 2 sprays into each nostril 2 (two) times a day. 2 Sprays by Each Nare route 2 times daily. Use in each nostril as directed 90 mL 3 01/13/2025 montelukast (SINGULAIR) 10 mg tabletIndications :Mild persistent asthma without complication Take 1 tablet (10 mg total) by mouth at bedtime. 90 each 3 01/13/2025 documented in this encounter Plan of Treatment Upcoming Encounters Date Type Department Care Team (Late st Contact Info) Description 04/02/2025 11:30 AM EDT Appointment Radiology Department - [address] [address] 04/18/2025 10:10 AM EDT Office Visit Pulmonolgy - [facility] [address] [facility] [address] [place] [address] Amber Austin NP [address] [facility] [place] [address] [place] [address] documented as of this encounter Visit Diagnoses Diagnosis Mild persistent asthma without complication- Primary Allergic rhinitis due to pollen, unspecified seasonality Encounter for screening mammogram for breast cancer documented in this encounter Discontinued Medications Medication Sig Discontinue Reason Start Date End Da te fluticasone propionate (FLONASE) 50 mcg/actuation nasal spray Administer 2 sprays into each nostril 1 (one) time each day. Duplicate order 05/18/2024 01/13/2025 beclomethasone dipropionate (QVAR REDIHALER) 80 mcg/actuation HFA aerosol breath activated inhaler Inhale 1 Puff into the lungs 2 Times Daily Duplicate order 01/13/2025 topiramate (TOPAMAX) 25 mg tablet Take 1 tablet (25 mg total) by mouth 1 (one) time each day in the evening. For 180 days Non-compliance 01/13/2025 albuterol 2.5 mg /3 mL (0.083 %) nebulizer solution Inhale 3 mL (2.5 mg total) by mouth. Reorder 01/26/2024 01/13/2025 albuterol HFA (Ventolin HFA) 90 mcg/actuation inhaler Inhale 2 puffs by mouth. Reorder 01/26/2024 01/13/2025 montelukast (SINGULAIR) 10 mg tablet Take 1 tablet (10 mg total) by mouth. Reorder 12/08/2023 01/13/2025 azelastine (ASTELIN) 137 mcg (0.1 %) nasal spray 2 Sprays by Each Nare route 2 times daily. Use in each nostril as directed Reorder 01/13/2025 fluticasone HFA (FLOVENT HFA) 110 mcg/actuation inhaler Inhale 1 puff by mouth 2 (two) times a day. Reorder 07/16/2024 01/13/2025 fluticasone propionate (FLONASE) 50 mcg/actuation nasal spray Administer 2 sprays into each nostril 1 (one) time each day. Reorder 07/16/2024 01/13/2025 documented as of this encounter Historical Medications * This list may reflect changes made after this encounter. vitamin D3-vitamin K2 (K2-D3 Max) 125 mcg (5,000 unit)-180 mcg capsule Take 5,000 Units by mouth 1 (one) time each day. ascorbic acid (Vitamin C) 1,000 mg tablet Take 1 tablet (1,000 mg total) by mouth 1 (one) time each day. ashwagandha extract 500 mg capsule Take 500 mg by mouth 1 (one) time each day. mecobalamin, vitamin B12, (B12 Active) 1,000 mcg tablet,chewable Chew 1,000 mcg 1 (one) time each day. omega 5-gfc-svq-fish oil 1,000 mg (250 mg-750 mg)/5 mL liquid Take 1,000 mg by mouth. vitamin E 670 mg (1,000 unit) capsule Take 1 capsule (1,000 Units total) by mouth 1 (one) time each day. fluticasone propionate (FLONASE) 50 mcg/actuation nasal spray Administer 2 sprays into each nostril 1 (one) time each day. 07/16/2024 5 fluticasone HFA (FLOVENT HFA) 110 mcg/actuation inhaler Inhale 1 puff by mouth 2 (two) times a day. 07/16/2024 5 added in this encounter Care Teams Cigarette Lighter Repairer Relationship Specialty Start Date End Date Guanakito Goode PA [address] [place] [address] PCP - General Internal Medicine 12/29/24 documented as of this encounter
[2025-01-14 10:32] LABS: Basophils Percent Auto 0.3 % (0-2); Eosinophils Absolute Auto 0.1 X10*3/uL (0.0-0.4); Eosinophils Percent Auto 1.2 % (0-4); Hematocrit 34.8 % (37.0-47.0); Hemoglobin 11.3 g/dl (12.0-16.0); Imm Gran Abs Auto 0.01 X10*3/uL (0.00-0.03); Imm Gran Pct Auto 0.2 % (0.0-0.4); Lymphocytes Absolute Auto 2.1 X10*3/uL (1.2-4.9); Lymphocytes Percent Auto 35.5 % (20-40); Mean Corpuscular HGB Conc 32.5 g/dl (31.0-35.0); Mean Corpuscular Hemoglobin 28.9 pg (27.0-33.0); Mean Platelet Volume 11.6 fL (9.4-12.3); Monocytes Absolute Auto 0.4 X10*3/uL (0.1-1.2); Monocytes Percent Auto 6.5 % (2-11); Neutrophils Absolute Auto 3.4 x10*3/uL (2.0-8.3); Neutrophils Percent Auto 56.3 % (45-73); Platelet Count 283 X10*3/uL (160-400); Red Blood Count 3.91 X10*6/uL (4.20-5.50); Red Cell Distribution Width 13.1 % (11.0-16.0)
[2025-01-14 10:42] LABS: Estimated Average Glucose 108 mg/dL; Hemoglobin A1c % 5.4 % (<6.0)
[2025-01-14 11:07] LABS: Alanine Aminotransferase 13 U/L (0-31); Alkaline Phosphatase 59 U/L (39-117); Anion Gap 10 (12-20); Aspartate Amino Transferase 19 U/L (5-31); Bilirubin Total 0.5 mg/dL (0.0-1.0); Blood Urea Nitrogen 19 mg/dL (9-16); C Reactive Protein < 0.10 mg/dL (< or = 0.50); Calcium 9.2 mg/dL (8.4-10.2); Carbon Dioxide 27 mmol/L (22-29); Chloride 106 mmol/L (96-108); Cholesterol 180 mg/dL (<200); Estimated Glomerular Filt Rate > 60; Glucose Random 85 mg/dL (60-115); HDL Cholesterol 54 mg/dL (>40); Iron 67 mcg/dL (30-160); LDL Cholesterol Calculated 117 mg/dL (<100); Percent Iron Saturation 24 % (15-50); Potassium 3.8 mmol/L (3.3-5.1); Sodium 139 mmol/L (135-145); Total Iron Binding Capacity 283 mcg/dL (228-428); Total Protein 7.2 g/dL (6.5-8.0); Triglycerides 47 mg/dL (<150); Unsaturated Iron Binding 216 ug/dL
[2025-01-14 11:31] LABS: Ferritin 53 ng/mL (10-250); TSH reflex Free T4 0.95 uIU/mL (0.32-4.0); Vitamin D 25-OH Total 55.2 ng/mL (>30)
[2025-01-14 11:49] LABS: Folate 8.2 ng/mL (> or = 4.0); Vitamin B12 670 pg/mL (200-900)
[2025-01-14 12:01] LABS: Insulin 4 uU/mL (2-29)
[2025-01-17 19:28] LABS: Zinc 70 mcg/dL (60-130)
[2025-01-19 02:18] LABS: Vitamin A 57 mcg/dL (38-98)
[2025-01-23 08:49] LABS: Vitamin B1 7 nmol/L (8-30)
== END 2025-01-14 09:14 | disposition home or self-care (01) ==
LOC: HO.LAB 09:13
PROVIDERS: PCP Physician Assistant Medical; Visit Provider Physician Assistant Surgical
DX: Z98.84 Bariatric surgery status (principal)
CPT/HCPCS: 36415; 80053; 80061; 82306; 82607; 82728; 82746; 83036; 83525; 83540; 84425; 84443; 84590; 84630; 85025; 86140

== ENCOUNTER 2025-02-07 09:23 | Outpatient (AMB) | payer OTHER, SELFPAY ==
--- NOTE | 2025-02-07 09:26 | MHC.OFFVISWM ---
VS Expanded 02/07/25 09:29 BP 130/61 Blood Pressure Location Rt brachial Blood Pressure Position Sitting Pulse 55 Pulse Source Pulse Oximeter Temp 97.2 F Temperature Source Temporal Artery Scan Pulse Oximetry 98 Height 5 ft 3 in Weight 178 lb BMI 31.5 Body Fat % 38.4 Body Fat Mass 68.4 Fat Free Mass 109.6 Visceral Fat Rating 10. Body Water % 43.7 Body Water Mass 77.8 Muscle Mass/Score 104. Basal Metabolic Rate/Score 1,499 Intake Visit Reasons: OV PO LSG (GLP-1 medication) Centerless Grinder Operator Required: No Allergies No Known Allergies [No Known Allergies*] Allergy (Verified 02/07/25 09:38) Medication List - Last Reconciled 02/07/25 by AMANDA Burgess ascorbate calcium (vitamin C) 1 g PO Q6H calcium carb-vitamin D3-vit K2 500 mg calcium- 200 unit-90 mcg 1 tab PO DAILY ergocalciferol (vitamin D2) (Vitamin D2) 1,250 mcg PO QWEEK magnesium citrate 500 mg PO ONCE thiamine HCl (vitamin B1) 100 mg PO DAILY 90 days vitamin E (dl, acetate) 45 mg PO DAILY HPI Comments Details: Patient is a 54-year-old female who returns to the office for follow-up. She is status post sleeve gastrectomy performed on 07/21/2018. She states that her weight initially was 215 lb. Her operative weight was approximally 190 lb. Her last visit was in a proximally 2019. She reports her lowest weight of 139 lb and the most she weighed since surgery was 180 lb. Weight today is 178 lb with a BMI of 31.5. She has lost 1.2 lb since reestablishing with the office on 01/04/2025. She states that since starting the meal plan her reflux has resolved. Meal plan: 6-8 am celebrate rebuild with 2 scoops in 10 oz of unsweetened coconut milk 11-1 pm another shake 6 pm meal with 7 forks of protein and 7 forks of vegetables 8 pm apple or half cup fresh berries Drink 48-64 oz of water or crystal light or propel daily Exercise plan: Treadmill, 5 days per week, 1 hour, 350 calories PFSH Surgical History Hx of laparoscopic partial gastrectomy Family History Sister Brain cancer Paternal Aunt Breast cancer Physical Exam Vital Signs: Last Vital Signs Temp 97.2 F 02/07/25 09:29 Pulse 55 02/07/25 09:29 BP 130/61 02/07/25 09:29 Pulse Ox 98 02/07/25 09:29 Const General: healthy appearing and no acute distress Resp Effort & Inspection: normal respiratory effort Auscultation: clear to auscultation bilaterally Cardio Rate: regular rate Rhythm: regular rhythm GI Auscultation: normal bowel sounds Extrem General: Yes normal to inspection Assessment & Plan Assessment & Plan (1) S/P laparoscopic sleeve gastrectomy: Code(s): Z98.84 - Bariatric surgery status Category: Surgical Plan: Overall, patient has adjusted to the meal plan. Encouraged her to increase her exercise to daily. Goal of 2000 calories burned per week. She states that she feels better, is happier, has no more reflux, and is satisfied with her progress so far. Discussed a goal of losing approximately 2 lb per week. Encouraged to continue to send weight is weekly and text with any questions or concerns. We will have her return to the office in approximately 4 weeks
[2025-02-07 09:29] VITALS: BP 130/61; PULSE 55; TEMP 36.2; O2SAT 98; BMI 31.5
== END 2025-02-07 09:47 | disposition home or self-care (01) ==
LOC: HO.HBS 09:24
PROVIDERS: PCP Internal Medicine Endocrinology, Diabetes & Metabolism; Visit Provider Physician Assistant Surgical
DX: E66.811 Obesity, class 1 (principal); Z68.31 Body mass index [BMI] 31.0-31.9, adult; Z90.3 Acquired absence of stomach [part of]; Z98.84 Bariatric surgery status
CPT/HCPCS: 99213; G2211

== ENCOUNTER → 2025-02-07 09:23 | Outpatient (BNVA) | payer OTHER, SELFPAY | PROVIDERS: PCP Internal Medicine Endocrinology, Diabetes & Metabolism; Visit Provider Physician Assistant Surgical | DX: Z98.84 Bariatric surgery status (principal) | CPT/HCPCS: 99212 ==

== ENCOUNTER 2025-03-21 10:09 | Outpatient (AMB) | payer OTHER, SELFPAY ==
--- NOTE | 2025-03-21 10:24 | MHC.OFFVISWM ---
VS Expanded 03/21/25 10:34 BP 124/60 Blood Pressure Location Rt brachial Blood Pressure Position Sitting Pulse 61 Pulse Source Pulse Oximeter Temp 97.5 F Temperature Source Temporal Artery Scan Pulse Oximetry 98 Oxygen Delivery Method Room Air Height 5 ft 3.5 in Weight 177 lb BMI 30.9 Body Fat % 38.9 Body Fat Mass 68.8 Fat Free Mass 108.0 Visceral Fat Rating 10.0 Body Water % 43.4 Body Water Mass 76.8 Muscle Mass/Score 102.6 Basal Metabolic Rate/Score 1,481 Intake Visit Reasons: OV PO LSG (GLP-1 MEDICATION) Broadcast Program Director Required: No Allergies No Known Allergies [No Known Allergies*] Allergy (Verified 03/21/25 10:28) Medication List - Last Reconciled 03/21/25 by AMANDA Burgess ascorbate calcium (vitamin C) 1 g PO Q6H calcium carb-vitamin D3-vit K2 500 mg calcium- 200 unit-90 mcg 1 tab PO DAILY ergocalciferol (vitamin D2) (Vitamin D2) 1,250 mcg PO QWEEK magnesium citrate 500 mg PO ONCE thiamine HCl (vitamin B1) 100 mg PO DAILY 90 days vitamin E (dl, acetate) 45 mg PO DAILY HPI Comments Details: Patient is a 54-year-old female who returns to the office for follow-up. She is status post sleeve gastrectomy performed on 07/21/2018. She states that her weight initially was 215 lb. Her operative weight was approximately 190 lb. She reports her lowest weight of 139 lb and the most she weighed since surgery was 180 lb. Weight today is 177 lb with a BMI of 31.3. She has lost 2.2 lb since reestablishing with the office on 01/04/2025. She states that since starting the meal plan her reflux has resolved. She was in [place] for about 2 weeks and did not follow the meal plan. She returned 2 weeks ago. She has resumed the meal plan. Meal plan: 6-8 am celebrate rebuild with 2 scoops in 10 oz of unsweetened coconut milk 11-1 pm another shake 6 pm meal with 7 forks of protein and 7 forks of vegetables 8 pm apple or half cup fresh berries Drink 48-64 oz of water or crystal light or propel daily Exercise plan: Treadmill, 5 days per week, 1 hour, 400 calories PFSH Surgical History Hx of laparoscopic partial gastrectomy Family History Sister Brain cancer Paternal Aunt Breast cancer Social History Alcohol intake: current Alcohol intake frequency: holidays/special occasions only Patient Tobacco Use Status: Never used Tobacco Physical Exam Const General: healthy appearing and no acute distress Resp Effort & Inspection: normal respiratory effort Auscultation: clear to auscultation bilaterally Cardio Rate: regular rate Rhythm: regular rhythm GI Auscultation: normal bowel sounds Extrem General: Yes normal to inspection Assessment & Plan Assessment & Plan (1) S/P laparoscopic sleeve gastrectomy: Code(s): Z98.84 - Bariatric surgery status Category: Surgical Plan: Overall, patient is doing well however has only lost 2.2 lb. She has not been following the meal plan exactly and has not been exercising as much. She states she feels better overall with changes in her meal plan and is now dedicated to following the meal plan and exercise plan. Encouraged to send weight is weekly and text with any questions or concerns. We will have her return to the office in approximately 6 weeks.
[2025-03-21 10:34] VITALS: BP 124/60; PULSE 61; TEMP 36.4; O2SAT 98; BMI 30.9
--- OUTSIDE RECORDS SUMMARY | 2025-03-21 10:36 | XMS_ITS | Encounter Summary ---
Author Organization [employer] [facility] Address [address] [place] [address] Care Team Providers Care Civil Structural Designer Name Role Phone Romeo Daniels MD Primary Care Provider Unavail able Emilie Gayle DO Primary Care Pro vider Unavailable Guanakito Goode PA-C Primary Care Provider [phone] [phone] Encounter Details Date Type Department Care Team Description 08/19/2019 Old Medical Records Medical Records [address] [place] [address] Abstract, Provider Social History Tobacco Use Types Packs/Day Years Used Date Smoking Tobacco: Never Smokeless Tobacco: Never Alcohol Use Standard Drinks/Week Comments Yes 0 (1 standard drink = 0.6 oz pur e alcohol) 1 drink at special occasions Sex Assigned at Date Recorded Female 12/29/2023 3:[address] Job Start Date Occupation Industry Not on file Not on file Not on file documented as of this encounter Plan of Treatment Not on file documented as of this encounter Visit Diagnoses Not on filedocumented in this encounter Care Teams Civil Structural Designer Relationship Specialty Start Date End Date Romeo Daniels MD PCP - General Internal Medicine 12/15/15 07/27/20 Emilie Gayle DO PCP - General Internal Medicine 07/28/20 01/21/21 Guanakito Goode PA-C [address] [place] [address] PCP - General Internal Medicine 01/22/21 documented as of this encounter
--- OUTSIDE RECORDS SUMMARY | 2025-03-21 10:36 | XMS_ITS | Encounter Summary ---
Author Organization [employer] [facility] Address [address] [place] [address] Care Team Providers Care Dope Dry House Operator Name Role Phone Romeo Daniels MD Primary Care Provider Unavail able Emilie Gayle DO Primary Care Pro vider Unavailable Guanakito Goode PA-C Primary Care Provider [phone] [phone] Encounter Details Date Type Department Care Team Description 09/29/2018 Vp [employer] Report Medical Records [address] [place] [address] Abstract, Provider Social History Tobacco Use Types [...] on filedocumented in this encounter Care Teams Dope Dry House Operator Relationship Specialty Start Date End Date Romeo Daniels MD PCP - General Internal Medicine 12/15/15 07/27/20 Emilie Gayle DO PCP - General Internal Medicine 07/28/20 01/21/21 Guanakito Goode PA-C [address] [place] [id number] PCP - General Internal Medicine 01/22/21 documented as of this encounter
--- OUTSIDE RECORDS SUMMARY | 2025-03-21 10:36 | XMS_ITS | Encounter Summary ---
Author Organization [employer] [facility] Address [address] [place] [address] Care Team Providers Care Dolly Operator Name Role Phone Romeo Daniels MD Primary Care Provider Unavail able Emilie Gayle DO Primary Care Pro vider Unavailable Guanakito Goode PA-C Primary Care Provider [phone] [phone] Encounter Details Date Type Department Care Team Description 04/22/2018 Book Reviewer Report Medical Records [address] [place] [id number] Abstract, Provider Social History Tobacco Use Types Packs/Day Years Used Date Smoking Tobacco: Never Assessed Sex Assigned at Date Recorded Female 12/29/2023 3:[address] Job Start Date Occupation Industry Not on file Not on file Not on file documented as of this encounter Plan of Treatment Not on file documented as of this encounter Visit Diagnoses Not on filedocumented in this encounter Care Teams Dolly Operator Relationship Specialty Start Date End Date Romeo Daniels MD PCP - General Internal Medicine 12/15/15 07/27/20 Emilie Gayle DO PCP - General Internal Medicine 07/28/20 01/21/21 Guanakito Goode PA-C [address] [place], [place] [id number] PCP - General Internal Medicine 01/22/21 documented as of this encounter
--- OUTSIDE RECORDS SUMMARY | 2025-03-21 10:36 | XMS_ITS | Clinical Summary ---
Author Organization [facility] Address [address] [place] [address] Care Team Providers Care Premises Technician Name Role Phone Guanakito Goode PA-C Primary Care Provider [phone] [phone] Allergies No known active allergies Medications Medication Sig Dispensed Refills Start Date End Date Status CPAP Historical (HISTORICAL CPAP) Inhale into the lungs. Life supply-pressure 4-8 0 Active Multiple Vitamins-Minerals (MULTIVITAMIN & MINERAL OR) Take by mouth. 0 Active omeprazole (PRILOSEC) 20 MG capsuleIndications :Gastroesophageal reflux disease without esophagitis Take 2 Capsules by mouth daily. 60 Capsule 0 05/05/2023 Active loratadine (Claritin) 10 MG tabletIndications: Allergic rhinitis due to pollen, unspecified seasonality Take 1 Tablet by mouth daily for 360 days. 30 Tablet 5 11/06/2023 Active sumatriptan (IMITREX) 100 MG tabletIndications: Menstrual migraine without status migrainosus, not intractable,Obstru ctive sleep apnea,Gastroesopha geal reflux disease without esophagitis,Right tennis elbow,Calculus of kidney,Acute cystitis with hematuria,Need for prophylactic vaccination with tetanus-diphtheria (Td),Need for prophylactic vaccination and inoculation against influenza TAKE 1 TABLET BY MOUTH NEEDED FOR MIGRAINE HEADACHES, MAY REPEAT DOSE ONCE AFTER 2 HOURS 10 Tablet 5 01/05/2024 Active Magnesium 400 MG Tab Take 2 Tablets by mouth daily. 30 Tablet 0 12/29/2023 Active topiramate (Topamax) 25 MG tablet Take 1 Tablet by mouth every evening for 180 days. 30 Tablet 5 12/29/2023 Active famotidine (PEPCID) 20 MG tabletIndications: Gastroesophageal reflux disease without esophagitis,Allerg ic rhinitis due to pollen, unspecified seasonality Take 1 Tablet by mouth 2 times daily. 180 Tablet 3 12/29/2023 Active albuterol (PROVENTIL) (2.5 MG/3ML) 0.083% nebulizer solutionIndication s:Mild intermittent asthma without complication TAKE 1 VIAL BY NEBULIZATION EVERY 4 HOURS NEEDED FOR WHEEZING. 300 mL 1 01/26/2024 Active Melatonin 3 MG TabIndications:Ins omnia, unspecified type Take 1-2 Tablets by mouth at bedtime as needed for Other (insomnia). 60 Tablet 1 05/14/2024 Active Ventolin HFA 108 (90 Base) MCG/ACT Aero Soln Inhale 2 Puffs into the lungs every 6 hours as needed for Cough, Wheezing or Shortness of Breath for up to 30 days. 54 g 3 07/16/2024 Active fluticasone 50 MCG/ACT nasal sprayIndications:A llergic rhinitis due to pollen, unspecified seasonality 2 Sprays by Nasal route daily. 48 mL 1 07/16/2024 Active montelukast (SINGULAIR) 10 MG tabletIndications: Allergic rhinitis due to pollen, unspecified seasonality Take 1 Tablet by mouth at bedtime for 360 days. 90 Tablet 3 07/16/2024 07/11/2025 Active fluticasone (Flovent HFA) 110 MCG/ACT inhaler Inhale 1 Puff into the lungs 2 times daily. 12 g 1 07/16/2024 Active azelastine (ASTELIN) 0.1 % nasal sprayIndications:A llergic rhinitis due to pollen, unspecified seasonality 2 Sprays by Each Nare route 2 times daily. Use in each nostril as directed 30 mL 0 07/16/2024 08/10/2025 Active Beclomethasone Diprop HFA (Qvar RediHaler) 80 MCG/ACT AEROSOL,BREATH ACTIVATEDIndicatio ns:Mild persistent asthma without complication Inhale 1 Puff into the lungs 2 Times Daily. 1 g 1 07/16/2024 Active Active Problems Problem Noted Date Mild persistent asthma without complicat ion 07/26/2024 Lateral epicondylitis of right elbow Vitamin D deficiency 06/23/2023 Allergic rhinitis due to pollen 03/09/20 18 Obstructive sleep apnea mode rate overall AHI 25/severe in REM 74 with some oxygen destats 11/13/2016 [facility]: Date 11/05/2016; Wt 210# SE 88%; SM 83%; REM 23%; RDI 31 (AHI 25), worse in REM (RDI 76 - AHI 74), Central apneas 1; Obstructive apneas 14; Mixed apneas 0; hypopneas 170; RERAs 46; average oxygen saturation 95% (lowest 69% - with saturations <88% for 5% or more of study); PLMs 31. [facility] Polysomnogram treatment study. Date 02/24/2017 . SE [...] CPAP 4-8cm PLMD (periodic limb movement disorder) 0 11/13/2016 GERD (gastroesophageal reflux disease) 0 07/04/2016 Migraine 10/01/2013 Overweight (BMI 25.0-29.9) 04/29/2013 Overview: S/p sleeve gastrectomy Heartburn 04/22/2012 Knee pain 04/22/2012 Calculus of kidney 01/08/2012 Overview: I got a CT report from [facility] documenting 6mm stone and left sided hydronephrosis. Asthma 08/22/2011 Overview: Mild and she only uses the albuterol about once per month Resolved Problems Problem Noted Date Resolved Date Renal stone 04/22/2012 11/18/2018 Immunizations Name Administration Dates Next Due COVID-19 (Moderna) PT Reported 07/24/2024 COVID-19 (Pfizer) 12/16/2021,04/12/2021,03/22/20 21 Covid-19 Bivalent (Moderna) 01/03/2023 Hepatitis B > 19yrs 08/09/2023 Influenza (> 6 Months) 09/29/2016,10/01/2013 Influenza Flu (PT Reported) 07/24/2024, Influenza Vaccine-preservati ve Free-quadrivalent 4 Years 12/23/2022 Influenza Vaccine-quadrivalent 4 Years Plus 07/12 Pneumoccoccal(Adult) Polysaccharide PPSV23 03/01 Pneumococcal Conjugate PCV-20 07/24/2024 Shingrix (Recombinant zoster vaccine) 03/03/2023 ,01/03/2023 TD (STATE SUPPLIED FOR ADULTS AND CHILDREN) 12/11 Tdap 04/22/2012 Family History Medical History Relation Name Comments GSW, wheelchair bound Brother Diabetes Father HTN, HLD Hypertension Maternal Grandfather CVA Diabetes Maternal Grandmother retinop athy, ESRD Cholesterol Level Mother DM CA Breast Other p aunt HI Paternal Grandfather HI Paternal Grandmother glioma Sister 1 No Known Problems Sister 2 CA Colon Negative Hx CA Ovarian Negative Hx Relation Name Status Comments Brother Alive Father Maternal Grandfather Maternal Grandmother Mother Alive Other p aunt Paternal Grandfather Paternal Grandmother Sister 1 Sister 2 Alive Social History Tobacco Use Types Packs/Day Years Used Date Smoking Tobacco: Never Smokeless Tobacco: Never Tobacco Cessation:Counseling Given: Not Answered Alcohol Use Standard Drinks/Week Comments Yes 0 (1 standard drink = 0.6 oz pur e alcohol) 1 drink at special occasions Sex Assigned at Date Recorded Female 12/29/2023 3:[address] Job Start Date Occupation Industry Not on file Not on file Not on file Last Filed Vital Signs Vital Sign Reading Time Taken Comments Blood Pressure 124/80 07/16/2024 10:46 AM EDT Pulse 49 07/16/2024 10:46 AM EDT Temperature 36.2 ??C (97.2 ??F) 07/16/2024 10:46 AM E DT Respiratory Rate 16 07/16/2024 10:46 AM EDT Oxygen Saturation 99% 07/16/2024 10:46 AM EDT Inhaled Oxygen Concentration - - Weight 83.1 kg (183 lb 3.2 oz) 07/16/2024 10:46 AM EDT Height 160 cm (5' 3 ) 07/16/2024 10:46 AM EDT Body Mass Index 32.45 07/16/2024 10:46 AM EDT Plan of Treatment Health Maintenance Due Date Last Done Comments Covid-19 Vaccine (2022- 4 season) 2024 07/24/2024, 01/03/2023, 12/16/2021, Additional history exists BMI CHECK/ADVISE 11/10/2024 07/16/2024, 03/2024, 12/29/2023, Additional history exists DEPRESSION SCREENING/FOLLOWUP 11/10/2024, 03/01/2019, 11/24/2018 (Completed) SOCIAL NEEDS SCREENING 11/10/2024 , 09/23/2023, 03/01/2019, Additional history exists MAMMOGRAM 03/13/2025 03/13/2024, 06/2023, 02/09/2022, Additional history exists BASELINE HEALTH EXAM 40-64 09/23/202509/23, 03/01/2019, 03/01/2019, Additional history exists CERVICAL CANCER SCREENING 03/07/20282022, 06/28/2016, 10/16/2012, Additional history exists CHOLESTEROL SCREENING 12/29/2028 12/29/2023 , 01/02/2023, 03/01/2019, Additional history exists COLON CANCER SCREENING 02/19/2031 02/19/2021 DTAP/TDAP/TD (3 - Td or Tdap) 12/23/2032 12/23/2022, 04/22/2012 HEPATITIS C SCREENING Completed 01/02/2023 SHINGLES VACCINE Completed 03/03/2023, 01/03/2023 INFLUENZA Completed 07/24/2024, 07/11, 12/23/2022, Additional history exists PNEUMOCOCCAL VACCINE FOR HIG H RISK PATIENTS Completed 07/24/2024, 03/01/2019 Care Teams Premises Technician Relationship Specialty Start Date End Date Guanakito Goode PA-C [address] [place] [id number] PCP - General Internal Medicine 01/22/21
--- OUTSIDE RECORDS SUMMARY | 2025-03-21 10:36 | XMS_ITS | Encounter Summary ---
Author Organization [facility] Address [address] [place] [address] Care Team Providers Care Home Service Consultant Name Role Phone Romeo Daniels MD Primary Care Provider Unavail able Emilie Gayle DO Primary Care Pro vider Unavailable Guanakito Goode PA-C Primary Care Provider [phone] [phone] Encounter Details Date Type Department Care Team Description 08/06/2016 Parts Department Supervisor Report Medical Records [address] [place] [address] Jael Kirk, RD, LDN [address] [address] Social History Tobacco Use Types Packs/Day Years [...] on filedocumented in this encounter Care Teams Home Service Consultant Relationship Specialty Start Date End Date Romeo Daniels MD PCP - General Internal Medicine 12/15/15 07/27/20 Emilie Gayle DO PCP - General Internal Medicine 07/28/20 01/21/21 Guanakito Goode PA-C [address] [place], [place] [phone] PCP - General Internal Medicine 01/22/21 documented as of this encounter
--- OUTSIDE RECORDS SUMMARY | 2025-03-21 10:36 | XMS_ITS | Encounter Summary ---
Author Organization [facility] Address [address] [place] [address] Care Team Providers Care Personal Development Mentor Name Role Phone Romeo Daniels MD Primary Care Provider Unavail able Emilie Gayle DO Primary Care Pro vider Unavailable Guanakito Goode PA-C Primary Care Provider [phone] [phone] Encounter Details Date Type Department Care Team Description 03/25/2018 Delivery Department Supervisor Report Medical Records [address] [place] [address] Abstract, Provider Social History Tobacco Use Types [...] on filedocumented in this encounter Care Teams Personal Development Mentor Relationship Specialty Start Date End Date Romeo Daniels MD PCP - General Internal Medicine 12/15/15 07/27/20 Emilie Gayle DO PCP - General Internal Medicine 07/28/20 01/21/21 Guanakito Goode PA-C [address] [place], [place] [phone] PCP - General Internal Medicine 01/22/21 documented as of this encounter
--- OUTSIDE RECORDS SUMMARY | 2025-03-21 10:36 | XMS_ITS | Encounter Summary ---
Author Organization [facility] Address [address] [place] [address] Care Team Providers Care Resource Program Teacher Name Role Phone Name, Boyd LAWLER Primary Care Provider Unavailabl Romeo Stuart MD Primary Care Provider Unavail able Emilie Gayle DO Primary Care Pro vider Unavailable Guanakito Goode PA-C Primary Care Provider [phone] [phone] Encounter Details Date Type Department Care Team Description 02/27/2012 [facility] [address] [place] [phone] Md [place] Social History Tobacco Use Types Packs/Day Years Used Date Smoking Tobacco: Never Smokeless Tobacco: Never Alcohol Use Standard Drinks/Week Comments No 0 (1 standard drink = 0.6 oz pur e alcohol) Sex Assigned at Date Recorded Female 12/29/2023 3:[address] Job Start Date Occupation Industry Not on file Not on file Not on file documented as of this encounter Plan of Treatment Not on file documented as of this encounter Visit Diagnoses Not on filedocumented in this encounter Care Teams Resource Program Teacher Relationship Specialty Start Date End Date Name, MD Boyd PCP - General 08/09/11 12/14/15 Romeo Daniels MD PCP - General Internal Medicine 12/15/15 07/27/20 Emilie Gayle DO PCP - General Internal Medicine 07/28/20 01/21/21 Guanakito Goode PA-C [address] [place] [phone] PCP - General Internal Medicine 01/22/21 documented as of this encounter
--- OUTSIDE RECORDS SUMMARY | 2025-03-21 10:36 | XMS_ITS | Encounter Summary ---
Author Organization [employer] [facility] Address [address] [place] [address] Care Team Providers Care Exhibit Cleaner Name Role Phone Romeo Daniels MD Primary Care Provider Unavail able Emilie Gayle DO Primary Care Pro vider Unavailable Guanakito Goode PA-C Primary Care Provider +1 [phone] Encounter Details Date Type Department Care Team Description 09/29/2018 Sight Mounter Report Medical Records [address] [place] [phone] Abstract, Provider Social History Tobacco Use Types [...] on filedocumented in this encounter Care Teams Exhibit Cleaner Relationship Specialty Start Date End Date Romeo Daniels MD PCP - General Internal Medicine 12/15/15 07/27/20 Emilie Gayle DO PCP - General Internal Medicine 07/28/20 01/21/21 Guanakito Goode PA-C [address] [place] [phone] PCP - General Internal Medicine 01/22/21 documented as of this encounter
--- OUTSIDE RECORDS SUMMARY | 2025-03-21 10:36 | XMS_ITS | Encounter Summary ---
Author Organization [employer] [facility] Address [address] [place] [address] Care Team Providers Care Safe Expert Name Role Phone Guanakito Goode PA-C Primary Care Provider [phone] [phone] Reason for Visit * Reason Comments E-prescribe Rx Request Encounter Details Date Type Department Care Team Description 05/18/2024 Refill Pulmonology - [place] [address] [phone] Amber Austin, SCALER PACKER [address] [phone] E-prescribe Rx Request Social History Tobacco Use Types Packs/Day Years [...] on file documented as of this encounter Miscellaneous Notes * Telephone Encounter - Ana Luisa Ng - 05/18/2024 8:26 AM EDT Liz: 05/14/2024 Nov: 07/16/2024 documented in this encounter Plan of Treatment Not on file documented as of this encounter Visit Diagnoses Diagnosis Allergic rhinitis due to pollen, unspecified seasonality documented in this encounter Care Teams Safe Expert Relationship Specialty Start Date End Date Guanakito Goode PA-C [address] [place] [address] PCP - General Internal Medicine 01/22/21 documented as of this encounter
--- OUTSIDE RECORDS SUMMARY | 2025-03-21 10:36 | XMS_ITS | Encounter Summary ---
Author Organization [employer] [facility] Address [address] [place] [address] Care Team Providers Care Bar Roller Name Role Phone Romeo Daniels MD Primary Care Provider Unavail able Emilie Gayle DO Primary Care Pro vider Unavailable Guanakito Goode PA-C Primary Care Provider +1 [phone] Encounter Details Date Type Department Care Team Description 12/13/2016 Orders Only Pulmonology [address] [place] [address] Nuvia Greenberg, [facility] [address] [place] [address] Obstructive sleep apnea moderate overall AHI 25/severe in REM 74 with some oxygen destats (Primary Dx); PLMD (periodic limb movement disorder) Social History Tobacco Use Types Packs/Day Years [...] as of this encounter Visit Diagnoses Diagnosis Obstructive sleep apnea moderate overall AHI 25/severe in REM 74 with some oxygen destats- Primary Obstructive sleep apnea (adult) (pediatric) PLMD (periodic limb movement disorder) Periodic limb movement disorder documented in this encounter Care Teams Bar Roller Relationship Specialty Start Date End Date Romeo Daniels MD PCP - General Internal Medicine 12/15/15 07/27/20 Emilie Gayle DO PCP - General Internal Medicine 07/28/20 01/21/21 Guanakito Goode PA-C [address] [place] [id number] PCP - General Internal Medicine 01/22/21 documented as of this encounter
--- OUTSIDE RECORDS SUMMARY | 2025-03-21 10:36 | XMS_ITS | Encounter Summary ---
Author Organization [employer] [facility] Address [address] [place] [address] Care Team Providers Care Casework Manager Name Role Phone Romeo Daniels MD Primary Care Provider Unavail able Emilie Gayle DO Primary Care Pro vider Unavailable Guanakito Goode PA-C Primary Care Provider [phone] [phone] Encounter Details Date Type Department Care Team Description 09/29/2018 Custom Leather Products Maker Report Medical Records [address] [place] [id number] Abstract, Provider Social History Tobacco Use Types [...] on filedocumented in this encounter Care Teams Casework Manager Relationship Specialty Start Date End Date Romeo Daniels MD PCP - General Internal Medicine 12/15/15 07/27/20 Emilie Gayle DO PCP - General Internal Medicine 07/28/20 01/21/21 Guanakito Goode PA-C [address] [place] [phone] PCP - General Internal Medicine 01/22/21 documented as of this encounter
--- OUTSIDE RECORDS SUMMARY | 2025-03-21 10:36 | XMS_ITS | Clinical Summary ---
Author Organization [facility] Address [address] [place] [address] Care Team Providers Care Adjunct Professor Name Role Phone Unavailable Primary Care Provider Unavailabl e Source Comments PLEASE NOTE, if this patient is a minor, it may be UNLAWFUL to discuss sensitive information that is contained in these records (such as FAMILY PLANNING, MENTAL HEALTH or SUBSTANCE ABUSE) with the minor patient's parent or other person without the patient's specific authorization.[facility] Immunizations Immunization Administration Dates Next Due PFIZER COVID VACCINE, [...] Health Maintenance Due Date Last Done Comments Anxiety Screening 1970 Diabetes Screening 1970 HPV Screening 1970 Hepatitis [...] 04/22/2022 012 Breast Cancer Screening (Mammogram) 01/06/202301/06 [id number] ( season) 2024 021, 03/22/2021 Imm-Influenza (#1) 2024 09/29/2016, 10/01/2013 Alcohol and Drug Screen 11/10/2024 Depression Annual Screen 11/10/2024 Cervical Ablation/Cold-Knife Conization Discontinued Cervical Cryotherapy Discontinued Colposcopy Discontinued Endometrial Biopsy Discontinued Excision/Leep Discontinued HPV Genotyping Discontinued Vaginal Pap Discontinued Vulvoscopy Discontinued Insurance [employer]
--- OUTSIDE RECORDS SUMMARY | 2025-03-21 10:36 | XMS_ITS | Encounter Summary ---
Author Organization [facility] Address [address] [place] [address] Care Team Providers Care Lead Housekeeper Name Role Phone Guanakito Goode PA-C Primary Care Provider [phone] [phone] Encounter Details Date Type Department Care Team Description 01/18/2023 Pt. Non Urgent Medical Question Adult Medicine [address] [address] Guanakito Goode PA-C [address] [place] [address] Social History Tobacco Use Types Packs/Day Years Used Date Smoking Tobacco: Never Smokeless Tobacco: Never Alcohol Use Standard Drinks/Week Comments Yes 0 (1 standard drink = 0.6 oz pur e alcohol) 1 drink at special occasions Sex Assigned at Date Recorded Female 12/29/2023 3:[address] Job Start Date Occupation Industry Not on file Not on file Not on file COVID-19 Exposure Response Date Recorded In the last 10 days, have yo u been in contact with someone who was confirmed or suspected to have Coronavirus/COVID-19? Unable to assess 01/02/2023 10:12 AM EST documented as of this encounter Miscellaneous Notes * Telephone Encounter - Loren Lopez M.A. - 01/20/2023 7:55 AM EDTFrom: Zonia Bhatt To: Anshu Goode Sent: 01/18/2023 8:47 PM EST Subject: Elbow pain, lab test results Hi. The pain in my elbow continues, even though I have taken pain medication and used the brace youordered. But the pain is worse than the time I went to see you and it limits my movements a lot. Could you refer me to a specialist? My other concern is that I saw high iron and cholesterol levels inthe r esults of the labs you ordered. Should I be worried? Any recommendation? documented in this encounter Plan of Treatment Not on file documented as of this encounter Visit Diagnoses Not on filedocumented in this encounter Care Teams Lead Housekeeper Relationship Specialty Start Date End Date Guanakito Goode PA-C [address] [place] [address] PCP - General Internal Medicine 01/22/21 documented as of this encounter
--- OUTSIDE RECORDS SUMMARY | 2025-03-21 10:36 | XMS_ITS | Encounter Summary ---
Author Organization [facility] Address [address] [place] [address] Care Team Providers Care Tool And Machine Maintainer Name Role Phone Name, Boyd LAWLER Primary Care Provider Unavailabl e Romeo Daniels MD Primary Care Provider Unavail able Emilie Gayle DO Primary Care Pro vider Unavailable Guanakito Goode PA-C Primary Care Provider [phone] [phone] Encounter Details Date Type Department Care Team Description 01/20/2012 Wool Batting Worker Report Medical Records [address] [place] [address] Alex Nelson PA-C Social History Tobacco Use Types Packs/Day Years [...] on filedocumented in this encounter Care Teams Tool And Machine Maintainer Relationship Specialty Start Date End Date Name, MD Boyd PCP - General 08/09/11 12/14/15 Romeo Daniels MD PCP - General Internal Medicine 12/15/15 07/27/20 Emilie Gayle DO PCP - General Internal Medicine 07/28/20 01/21/21 Guanakito Goode PA-C [address] [place], [place] [phone] PCP - General Internal Medicine 01/22/21 documented as of this encounter
--- OUTSIDE RECORDS SUMMARY | 2025-03-21 10:36 | XMS_ITS | Encounter Summary ---
Author Organization [facility] Address [address] [place] [address] Care Team Providers Care Cold Type Artist Name Role Phone Guanakito Goode PA-C Primary Care Provider +1 [phone] Encounter Details Date Type Department Care Team Description 04/12/2024 SCAN [facility] [address] [phone] Lynnette Ortiz MD [address] [address] Social History Tobacco Use Types Packs/Day Years Used Date Smoking Tobacco: Never Smokeless Tobacco: Never Alcohol Use Standard Drinks/Week Comments Yes 0 (1 standard drink = 0.6 oz pur e alcohol) 1 drink at special occasions Sex Assigned at Date Recorded Female 12/29/2023 3:18 PM E [employer] Job Start Date Occupation Industry Not on file Not on file Not on file documented as of this encounter Plan of Treatment Not on file documented as of this encounter Visit Diagnoses Not on filedocumented in this encounter Care Teams Cold Type Artist Relationship Specialty Start Date End Date Guanakito Goode PA-C [address] [place] [id number] PCP - General Internal Medicine 01/22/21 documented as of this encounter
--- OUTSIDE RECORDS SUMMARY | 2025-03-21 10:36 | XMS_ITS | Encounter Summary ---
Author Organization [facility] Address [address] [place] [address] Care Team Providers Care Editorial Assistant Name Role Phone Emilie Gayle DO Primary Care Pro vider Unavailable Guanakito Goode PA-C Primary Care Provider [phone] [phone] Reason for Visit * Reason Onset Date Comments Sore Throat 07/28/2020 Edema 07/28/2020 Encounter Details Date Type Department Care Team Description 07/28/2020 Telephone Adult Medicine [address] [address] Emilie Gayle DO Sore Throat; Edema Social History Tobacco Use Types Packs/Day Years [...] encounter Miscellaneous Notes * Telephone Encounter - Lavern Anthony R.N. - 07/28/2020 9:30 AM EDT Pt has gone to the er * Telephone Encounter - Geno Cuevas - 07/28/2020 9:26 AM EDT Symptoms patient is presenting: the pt has cough and edema in both feet having trouble swallowing For ALL patients calling to schedule any appointment (routine, sick visit, follow up, consult, etc.) in the outpatient setting please ask the following questions: ?? Do you have fever of higher than 101, sore throat with difficulty swallowing or severe shortnessof breath? YES If YES to any of these above symptoms, send a message to triage and do not book. Red dot. If no, an audio or video visit should be booked. ?? Have you had close contact with someone with Coronavirus in the last 14 days? NO ?? Have you traveled abroad? NO ?? Have you traveled recently to another state outside of [place], [place], [place], [place], [place], [place], [place]? NO o If yes, did you quarantine for 14 days or have a negative covid test? NO If yes to any of the above, patient is not to be scheduled in office until after 14 day quarantine or negative covid test. If pain or injury related was it due to an accident at work or from a motor vehicle accident? NO If yes, gather 3rd green party insurance information Date of accident/Injury: How long has patient had these symptoms?: PCP: Emilie Cedeno Payor: [employer] FFS / Plan: [employer] / Product Type: MEDICAID RISK documented in this encounter Plan of Treatment Not on file documented as of this encounter Visit Diagnoses Not on filedocumented in this encounter Care Teams Editorial Assistant Relationship Specialty Start Date End Date Emilie Gayle DO PCP - General Internal Medicine 07/28/20 01/21/21 Guanakito Goode PA-C [address] [place] [address] PCP - General Internal Medicine 01/22/21 documented as of this encounter
--- OUTSIDE RECORDS SUMMARY | 2025-03-21 10:36 | XMS_ITS | Encounter Summary ---
Author Organization [facility] Address [address] [place] [address] Care Team Providers Care Cad Designer Drafter Name Role Phone Romeo Daniels MD Primary Care Provider Unavail able Emilie Gayle DO Primary Care Pro vider Unavailable Guanakito Goode PA-C Primary Care Provider [phone] [phone] Reason for Visit * Reason Onset Date Comments er follow up 12/01/2019 Encounter Details Date Type Department Care Team Description 12/01/2019 Telephone Adult Medicine [address] [address] Romeo Daniels MD er follow up Social History Tobacco Use Types Packs/Day Years [...] encounter Miscellaneous Notes * Telephone Encounter - Fatuma Hawkins - 12/01/2019 12:02 PM EST ER follow-up appointment booked YES 12/03/2019 If ER or UC follow up, can be booked with APC or MD. If hospital admission follow up MUST be booked with a physician Appointment time: 10:15AM Provider visit is scheduled with: Angie Sinha PA-C Hospital/ center patient was treated at: [facility] Date of visit: 11/30/2019 Was this only an ER/UC visit or was the patient admitted to the hospital? ER visit onlyER visit only If patient was admitted what was the date of discharge? N/A Reason/diagnosis for visit or stay: blood in urine, kidney stone Was visit or stay related to an injury? NO If yes, what was the date of injury (DOI)? N/A If yes, was the injury due to N/A Tests performed: Lab: YES X-ray: NO EKG: NO Other tests. If yes, what?; N/A documented in this encounter Plan of Treatment Not on file documented as of this encounter Visit Diagnoses Not on filedocumented in this encounter Care Teams Cad Designer Drafter Relationship Specialty Start Date End Date Romeo Daniels MD PCP - General Internal Medicine 12/15/15 07/27/20 Emilie Gayle DO PCP - General Internal Medicine 07/28/20 01/21/21 Guanakito Goode PA-C [address] [place] [address] PCP - General Internal Medicine 01/22/21 documented as of this encounter
--- OUTSIDE RECORDS SUMMARY | 2025-03-21 10:36 | XMS_ITS | Encounter Summary ---
Author Organization [facility] [facility] Address [address] [place] [address] Care Team Providers Care Spaghetti Press Helper Name Role Phone Guanakito Goode PA-C Primary Care Provider [phone] [phone] Encounter Details Date Type Department Care Team Description 05/05/2023 Events Associate Report Medical Records [address] [place] [address] Lynnette Valdovinos NP Social History Tobacco Use Types Packs/Day Years [...] was confirmed or suspected to have Coronavirus/COVID-19? No / Unsure 05/05/2023 8:30 AM EDT documented as of this encounter Plan of Treatment Not on file documented as of this encounter Visit Diagnoses Not on filedocumented in this encounter Care Teams Spaghetti Press Helper Relationship Specialty Start Date End Date Guanakito Goode PA-C [address] [place], [place] [phone] PCP - General Internal Medicine 01/22/21 documented as of this encounter
--- OUTSIDE RECORDS SUMMARY | 2025-03-21 10:36 | XMS_ITS | Encounter Summary ---
Author Organization [facility] Address [address] [place] [address] Care Team Providers Care Emergency Medicine Nurse Practitioner Name Role Phone Romeo Daniels MD Primary Care Provider Unavail able Emilie Gayle DO Primary Care Pro vider Unavailable Guanakito Goode PA-C Primary Care Provider [phone] [phone] Encounter Details Date Type Department Care Team Description 03/31/2018 Optometrist/Practice Owner Report Medical Records [address] [place] [address] Abstract, Provider Social History Tobacco Use Types [...] on filedocumented in this encounter Care Teams Emergency Medicine Nurse Practitioner Relationship Specialty Start Date End Date Romeo Daniels MD PCP - General Internal Medicine 12/15/15 07/27/20 Emilie Gayle DO PCP - General Internal Medicine 07/28/20 01/21/21 Guanakito Goode PA-C [address] [place], [place] [phone] PCP - General Internal Medicine 01/22/21 documented as of this encounter
--- OUTSIDE RECORDS SUMMARY | 2025-03-21 10:36 | XMS_ITS | Encounter Summary ---
Author Organization [facility] Address [address] [place] [address] Care Team Providers Care Plant Supervisor Name Role Phone Guanakito Goode PA-C Primary Care Provider [phone] [phone] Reason for Visit * Reason Onset Date Comments Prior Authorization 07/19/2024 Encounter Details Date Type Department Care Team Description 07/19/2024 Telephone Pulmonology - [place] [address] [phone] Geovanna Amber, PLASTIC SURGERY COORDINATOR [address] [phone] Prior Authorization Social History Tobacco Use Types Packs/Day Years [...] encounter Miscellaneous Notes * Telephone Encounter - Keyona Miranda M.A. - 07/22/2024 3:18 PM EDT Prior authorization for the qvar was approved Approved from 07/20/24 until 07/20/25 Authorization case approval number # [id number] Approval faxed to [facility] [phone] * Telephone Encounter - Keyona Miranda M.A. - 07/20/2024 12:38 PM EDT Prior authorization for the qvar was completed today over the phone with Zonia riley [facility] Dx code J45.909 asthma New start Trials Flovent Pulmicort Arnuity ellipta * Telephone Encounter - Ana Luisa Ng - 07/19/2024 3:15 PM EDT Prior Authorization for Medication-do not complete and send this encounter unless you have the fax from the pharmacy. Is this a Cover My Meds request: Yes -- Philip Code [id number] Name of Medication QVAR REDIHALER Dose of Medication 80 MCG/ACT What is the RX # from the faxed refill? How does patient take this med? Aerosol What Pharmacy did the fax come from: [facility] Pharmacy fax #: [phone] [employer] Party Information from fax: What Prescription Plan does the patient have? BIN/PCN if applicable: Cardholder ID: Person Code: Relationship Code: Help desk phone: [phone] documented in this encounter Plan of Treatment Not on file documented as of this encounter Visit Diagnoses Not on filedocumented in this encounter Care Teams Plant Supervisor Relationship Specialty Start Date End Date Guanakito Goode PA-C [address] [place] [id number] PCP - General Internal Medicine 01/22/21 documented as of this encounter
--- OUTSIDE RECORDS SUMMARY | 2025-03-21 10:36 | XMS_ITS | Encounter Summary ---
Author Organization [facility] Address [address] [place] [address] Care Team Providers Care Chip Applying Machine Tender Name Role Phone Guanakito Goode PA-C Primary Care Provider [phone] [phone] Reason for Visit * Reason Comments E-prescribe Rx Request Encounter Details Date Type Department Care Team Description 01/26/2024 Refill Pulmonology - [place] [address] [phone] Amber Austin, SUPPLY CHAIN PROGRAM MANAGER [address] [phone] E-prescribe Rx Request Social History Tobacco Use [...] encounter Miscellaneous Notes * Telephone Encounter - Lynnette Richmond - 01/26/2024 9:21 AM EDT LIAM 11/06/23 NOV 05/07/24 documented in this encounter Plan of Treatment Not on file documented as of this encounter Visit Diagnoses Diagnosis Mild intermittent asthma without complication Unspecified asthma documented in this encounter Care Teams Chip Applying Machine Tender Relationship Specialty Start Date End Date Guanakito Goode PA-C [address] [place] [address] PCP - General Internal Medicine 01/22/21 documented as of this encounter
--- OUTSIDE RECORDS SUMMARY | 2025-03-21 10:36 | XMS_ITS | Clinical Summary ---
Author Organization [facility] [address] [facility] Address [address] [place] [address] Phone Care Team Providers Care Mother Superior Name Role Phone Guanakito Goode Primary Care Provider +1 [phone] Allergies No known active allergies Medications omeprazole (PriLOSEC) [address] capsule Take 2 capsules (40 mg total) by mouth 1 (one) time each day. 05/05/20 23 Active SUMAtriptan (IMITREX) 100 mg tablet TAKE 1 TABLET BY MOUTH NEEDED FOR MIGRAINE HEADACHES, MAY REPEAT DOSE ONCE AFTER 2 HOURS 01/05/20 24 Active magnesium oxide (MAG-OX) 400 mg magnesium tablet Take 2 tablets (800 mg total) by mouth 1 (one) time each day. 12/29/19 24 Active multivitamin with minerals (Multiple Vitamin-Mineral s) tablet Take by mouth. Activ e UNABLE TO FIND Med Name: CPAP Historical (HISTORICAL CPAP) Inhale into the lungs. Life supply-pressure 4-8 - Inhalation Active famotidine (PEPCID) 20 mg tabletIndicatio ns:Allergic rhinitis due to pollen,Gastro-e sophageal reflux disease without esophagitis TAKE 1 TABLET BY MOUTH TWICE A DAY 180 tablet 3 01/14/20 25 Active montelukast (SINGULAIR) 10 mg tabletIndicatio ns:Mild persistent asthma without complication Take 1 tablet (10 mg total) by mouth at bedtime. 90 each 3 01/14/20 25 2025 Active azelastine (ASTELIN) 137 mcg (0.1 %) nasal sprayIndication s:Allergic rhinitis due to pollen, unspecified seasonality Administer 2 sprays into each nostril 2 (two) times a day. 2 Sprays by Each Nare route 2 times daily. Use in each nostril as directed 90 mL 3 01/14/20 25 2025 Active albuterol HFA (Ventolin HFA) 90 mcg/actuation inhalerIndicati ons:Mild persistent asthma without complication Inhale 2 puffs by mouth every 4 (four) hours if needed for wheezing. 54 g 1 01/14/20 25 Active albuterol 2.5 mg /3 mL (0.083 %) nebulizer solutionIndicat ions:Mild persistent asthma without complication Take 3 mL (2.5 mg total) by nebulization every 4 (four) hours if needed for wheezing. 75 mL 3 01/14/20 25 Active vitamin E 670 mg (1,000 unit) capsule Take 1 capsule (1,000 Units total) by mouth 1 (one) time each day. Active omega 8-xxx-bpf-fish oil 1,000 mg (250 mg-750 mg)/5 mL [...] 1 (one) time each day. Active fluticasone propionate (FLONASE) 50 mcg/actuation nasal sprayIndication s:Allergic rhinitis due to pollen, unspecified seasonality Administer 2 sprays into each nostril 1 (one) time each day. 48 g 3 01/14/20 25 2025 Active mometasone HFA (Asmanex HFA) 100 mcg/actuation HFA aerosol inhaler inhalerIndicati ons:Mild persistent asthma without complication Inhale 1 puff by mouth 2 (two) times a day. 13 g 2 02/03/20 25 2024 Active melatonin 3 mg tabletIndicatio ns:Insomnia, unspecified TAKE 1-2 TABLETS BY MOUTH AT BEDTIME NEEDED FOR OTHER (INSOMNIA). 60 tablet 1 02/25/20 25 Active loratadine (CLARITIN) 10 mg tabletIndicatio ns:Allergic rhinitis due to pollen TAKE 1 TABLET BY MOUTH EVERY DAY 90 tablet 1 02/25/20 25 Active loratadine (CLARITIN) 10 mg tablet Take 1 tablet (10 mg total) by mouth. 11/06/20 23 2024 Discontinued melatonin 3 mg tablet Take 1-2 tablets (3-6 mg total) by mouth. 05/14/20 24 2024 Discontinued Active Problems Problem Noted Date Diagnosed Date Mild persistent asthma without complication 05/2024 Lateral epicondylitis of right elbow 04/09/2024 Vitamin D deficiency 06/23/2023 Allergic rhinitis due to pollen 01/16/2018 Obstructive sleep apnea 11/13/2016 Overview (08/16/2024): [facility] [place]ysomnogram: Date 11/05/2016; Wt 210# SE 88%; SM 83%; REM 23%; RDI 31 (AHI 25), worse in REM (RDI 76 - AHI 74), Central apneas 1; Obstructive apneas 14; Mixed apneas 0; hypopneas 170; RERAs 46; average oxygen saturation 95% (lowest 69% - with saturations <88% for 5% or more of study); PLMs 31. [facility] Polysomnogram treatment study. Date 02/24/2017 . SE [...] (08/16/2024): I got a CT report from [facility] documenting 6mm stone and left sided hydronephrosis. Asthma 08/22/2011 Overview (08/16/2024): Mild and she only uses the albuterol about once per month Encounters Date Type Department Care Team Description [facility] [address] [place] [phone] Anisha Molina MA DME cpap order [facility] [address] [place] [phone] Amber Austin NP DME cpap order 01/13/2025 11:30 AM EST [facility] [address] [place] [phone] Amber uAstin NP Mild persistent asthma without complication (Primary Dx); Allergic rhinitis due to pollen, unspecified seasonality; Obstructive sleep apnea; PLMD (periodic limb movement disorder) from Last 3 Months Immunizations Name Administration [...] Surgery Date Site/Laterality Comments ESOPHAGOGASTRODUODENOSCOPY 04/10/2012 PROCEDURE: SD ESOPHAGOGASTRODUODENOSCOPY TRANSORAL DIAGNOSTIC; COMMENT: normal MULTIPLE TOOTH EXTRACTIONS PROCEDURE: HISTORICAL DENTAL EXTRACTION OTHER SURGICAL HISTORY 07/21/2018 PROCEDURE: SD LAPS GSTR RSTCV PX W/BYP RASHI-EN-Y LIMB [...] 04/02/2025 11:30 AM EDT Appointment Radiology Department [address] [phone] 04/18/2025 10:35 AM EDT Office Visit Pulmonolgy - [place] 175 [facility] [address] [place] [phone] Amber Austin, SURAJ 175 [facility] Kevin [address] [place] [address] Health Maintenance Due Date Last Done Comments Hepatitis B Vaccines (2 of 2 - CpG 2-dose series) 09/06/2023 08/09/2023 COVID-19 Vaccine ( season) 2024 07/24/2024, 01/03/2023, 12/16/2021, Additional history exists Depression Screening 09/23/2024 12/29/2023, 09/23/20 23 Social Influencers of Health Screening 12/22/2024 12/22/2023 Influenza Vaccine (Season Ended) 2025 08/09/2023, 07/21/2023, 12/23/2022, Additional history exists Breast Cancer Screening 03/13/2026 03/13/20 24, 03/13/2024, [...] age to complete this topic Meningococcal B Vaccine Aged Out No l onger eligible based on patient's age to complete this topic RSV Immunization Patients Under 20 months Aged Out No longer eligible based on patient's age to complete this topic Varicella Vaccines Aged Out No longer eligible based on patient's age to complete this topic Procedures Procedure Name Priority Date/Time Associated Diagnosis Comments POLYSOMNOGRAPHY Routine 02/01/2025 3:20 PM EDT POLYSOMNOGRAPHY Routine 02/01/2025 3:19 PM EDT EXTERNAL CLINICAL LAB 01/14/2025 EXTERNAL CLINICAL LAB 01/14/2025 SCREENING MAMMOGRAPHY BI 2-VIEW BREAST INC CAD Routine 03/13/2024 11:24 AM EDT Encounter for screening mammogram for malignant neoplasm of breast LIPID PANEL Routine 12/29/2023 DEPRESSION SCREENING Routine 09/23/2023 HPV Routine 03/07/2023 HEPATITIS C SCREENING Routine 01/02/2023 COLONOSCOPY Routine 02/19/2021 HIV SCREENING Routine 11/24/2018 from Last 3 Months or Most Recently Relevant to Health Maintenance Results * Polysomnography (02/01/2025 3:20 PM EDT) Historical Provider [facility]EP CENTER ORDERABLES F inal Result * Polysomnography (02/01/2025 3:19 PM EDT) [facility] Provider SLEEP CENTER ORDERABLES F inal Result * External clinical lab (01/14/2025) Only the most recent of2 resultswithin the time period is included. Provider [place] [facility] LAB BLOOD ORDERABLES Fin al Result * SCREENING MAMMOGRAPHY BI 2-VIEW BREAST INC [...] Breast cancer risk category Low (<15%) Result [facility] Guanakito PATEL IMG XR PROCEDURES Final R esult * (ABNORMAL) Lipid panel (12/29/2023) [facility] LDL/HDL Ratio 3 0 - 4 Triglycerides 105 0 - 150 mg/dL Cholesterol 200 0 - 200 mg/dL HDL 72 >=40 mg/dL LDL Cholesterol 107(A) 0 - 100 mg/dL Blood Venous blood specimen / Unknown Result [facility] LAB BLOOD ORDERABLES [place] Result * Depression Screening (09/23/2023) [facility] Depression Screening abstracted Result [facility] HEALTH MAINTENANCE Final Result * Cervical Cancer Screening: HPV (03/07/2023) [facility] Cervical Cancer Screening: HPV abstracted; negative Result [facility] Kell LAWLER HEALTH MAINTENANCE Final Result * Hepatitis C Screening (01/02/2023) [facility] Hepatitis C Screening abstracted Result [facility] HEALTH MAINTENANCE Final Result * Colonoscopy (02/19/2021) [facility] Colonoscopy abstracted Anatomical Region Laterality Modality Other Result [facility] HEALTH MAINTENANCE Final Result * HIV Screening (11/24/2018) [facility] HIV Screening abstracted Result [facility] HEALTH MAINTENANCE Final Result from Last 3 Months or Most Recently Relevant to Health Maintenance Insurance [facility] Care Teams Mother Superior Relationship Specialty Start Date End Date Guanakito Goode PA [address] [place] [address] PCP - General Internal Medicine 12/29/24
--- OUTSIDE RECORDS SUMMARY | 2025-03-21 10:36 | XMS_ITS | Encounter Summary ---
Author Organization [facility] Address [address] [place] [address] Care Team Providers Care Roofing Sales Representative Name Role Phone Guanakito Goode PA-C Primary Care Provider [phone] [phone] Encounter Details Date Type Department Care Team Description 02/21/2021 Orders Only Medical Records [address] [place] [address] Myra Avalos MD [address] [place], [place] [phone] Social History Tobacco Use Types Packs/Day Years [...] on file documented as of this encounter Progress Notes * Manfred Avalos MD - 03/04/2021 2:37 PM EDT Dear Zonia,The polyp(s) that were removed during your colonoscopy were precancerous, but benign. Fortunately, we removed them and therefore, they will not cause any more problems in the future. Basedon the number, the size, and the features of the polyp(s) removed, I recommend a follow-up colonoscopy in 5 years. Before, the 5 years are due, we will send you a reminder in the mail asking you to contact our office to have the colonoscopy scheduled. I would like to personally thank you for allowing us to take care of you. Please don't hesitate to call us for any questions or concerns. Regards, Denise Avalos MD Board Certified Gastroenterology and Internal Medicine Transplant Hepatology [facility] documented in this encounter Plan of Treatment Not on file documented as of this encounter Procedures Procedure Name Priority Date/Time Associated Diagnosis Comments OUTSIDE PATHOLOGY Routine 02/19/2021 documented in this encounter Results * OUTSIDE PATHOLOGY (02/19/2021) Myra Avalos MD OUTSIDE LAB documented in this encounter Visit Diagnoses Not on filedocumented in this encounter Care Teams Roofing Sales Representative Relationship Specialty Start Date End Date Guanakito Goode PA-C [address] [place] [address] PCP - General Internal Medicine 01/22/21 documented as of this encounter
--- OUTSIDE RECORDS SUMMARY | 2025-03-21 10:36 | XMS_ITS | Encounter Summary ---
Author Organization [facility] Address [address] [place] [address] Care Team Providers Care Nurse Ldr Name Role Phone Guanakito Goode PA-C Primary Care Provider [phone] Reason for Visit * Reason Comments E-prescribe Rx Request Encounter Details Date Type Department Care Team Description 12/07/2023 Refill Pulmonology - [place] [address] [phone] Amber Austin, [employer] [address] [phone] E-prescribe Rx Request Social History Tobacco Use [...] encounter Miscellaneous Notes * Telephone Encounter - Lia Olivares - 12/08/2023 10:03 AM EST LIAM 11/06/23 NOV 05/07/24 documented in this encounter Plan of Treatment Not on file documented as of this encounter Visit Diagnoses Diagnosis Allergic rhinitis due to pollen, unspecified seasonality documented in this encounter Care Teams Nurse Ldr Relationship Specialty Start Date End Date Guanakito Goode PA-C [address] [place] [address] PCP - General Internal Medicine 01/22/21 documented as of this encounter
--- OUTSIDE RECORDS SUMMARY | 2025-03-21 10:36 | XMS_ITS | Encounter Summary ---
Author Organization [facility] Address [address] [place] [address] Care Team Providers Care Etcher [employer] Name Role Phone Name, Boyd LAWLER Primary Care Provider Unavailabl e Romeo Daniels MD Primary Care Provider Unavail able Emilie Gayle DO Primary Care Pro vider Unavailable Guanakito Goode PA-C Primary Care Provider [phone] Encounter Details Date Type Department Care Team Description 02/14/2012 Employment Coach Report Medical Records [address] [place] [address] Alex Nelson PA-C Social History Tobacco Use [...] on filedocumented in this encounter Care Teams Etcher [employer] Relationship Specialty Start Date End Date Name, MD Boyd PCP - General 08/09/11 12/14/15 Romeo Daniels MD PCP - General Internal Medicine 12/15/15 07/27/20 Emilie Gayle DO PCP - General Internal Medicine 07/28/20 01/21/21 Guanakito Goode PA-C [address], [place] [id number] PCP - General Internal Medicine 01/22/21 documented as of this encounter
--- OUTSIDE RECORDS SUMMARY | 2025-03-21 10:36 | XMS_ITS | Encounter Summary ---
Author Organization [facility] Address [address] [place] [address] Care Team Providers Care Accredited Pharmacy Technician Name Role Phone Guanakito Goode PA-C Primary Care Provider [phone] Encounter Details Date Type Department Care Team Description 03/12/2023 Computer Network And Systems Engineer Report Medical Records [address] [place] [address] Ace Gillespie MD Social History Tobacco Use Types Packs/Day Years [...] suspected to have Coronavirus/COVID-19? No / Unsure 03/07/2023 3:18 PM EDT documented as of this encounter Plan of Treatment Not on file documented as of this encounter Visit Diagnoses Not on filedocumented in this encounter Care Teams Accredited Pharmacy Technician Relationship Specialty Start Date End Date Guanakito Goode PA-C [address] [place], [place] [phone] PCP - General Internal Medicine 01/22/21 documented as of this encounter
== END 2025-03-21 10:52 | disposition home or self-care (01) ==
LOC: HO.HBS 10:09
PROVIDERS: PCP Physician Assistant Medical; Visit Provider Physician Assistant Surgical
DX: E66.9 Obesity, unspecified (principal); Z68.30 Body mass index [BMI] 30.0-30.9, adult; Z98.84 Bariatric surgery status
CPT/HCPCS: 99213

== ENCOUNTER → 2025-03-21 10:09 | Outpatient (BNVA) | payer OTHER, SELFPAY | PROVIDERS: PCP Physician Assistant Medical; Visit Provider Physician Assistant Surgical | DX: Z98.84 Bariatric surgery status (principal) | CPT/HCPCS: 99212 ==